=== PATIENT | female | born 1940 | race Caucasian/White ===

== ENCOUNTER → 2017-11-06 | Outpatient (CLI) | payer MEDICARE | END | disposition home or self-care (01) | LOC: OIH 14:44 | PROVIDERS: ATTEND Internal Medicine | DX: M25.562 Pain in left knee (principal); M25.552 Pain in left hip | CPT/HCPCS: 73502; 73560 ==

== ENCOUNTER → 2017-11-26 | Outpatient (CLI) | payer MEDICARE | END | disposition home or self-care (01) | LOC: SHCH 15:38 | PROVIDERS: ATTEND Internal Medicine Cardiovascular Disease | DX: R94.31 Abnormal electrocardiogram [ECG] [EKG] (principal) | CPT/HCPCS: 93306 ==

== ENCOUNTER 2017-12-04 17:00 | Emergency (ER) | payer MEDICARE | END 2017-12-04 18:47 | disposition home or self-care (01) | LOC: EDH 17:00 | DX: F41.8 Other specified anxiety disorders (principal); I10 Essential (primary) hypertension; Z88.0 Allergy status to penicillin; Z88.6 Allergy status to analgesic agent; Z90.710 Acquired absence of both cervix and uterus; Z90.49 Acquired absence of other specified parts of digestive tract; Z79.899 Other long term (current) drug therapy ==

== ENCOUNTER 2017-12-08 22:34 | Emergency (ER) | payer MEDICARE ==
[2017-12-08] MEDS ORDERED: LORAZEPAM 1 MG TABLET ONE (23:36)
== END 2017-12-08 23:52 | disposition home or self-care (01) ==
LOC: EDH 22:34
DX: F41.9 Anxiety disorder, unspecified (principal); F32.9 Major depressive disorder, single episode, unspecified; I10 Essential (primary) hypertension; M48.02 Spinal stenosis, cervical region; Z88.1 Allergy status to other antibiotic agents; Z88.0 Allergy status to penicillin; Z90.710 Acquired absence of both cervix and uterus; Z90.49 Acquired absence of other specified parts of digestive tract

== ENCOUNTER 2017-12-11 15:01 | Emergency (ER) | payer MEDICARE ==
[2017-12-11 16:13] LABS: APPEARANCE,URINE Clear (CLEAR); BILIRUBIN,URINE Negative (NEGATIVE); COLOR,URINE Yellow (YELLOW); GLUCOSE, URINE (UA) Negative (NEGATIVE); KETONES,URINE Negative (NEGATIVE); LEUKOCYTE ESTERASE ,URINE Negative (NEGATIVE); NITRATE,URINE Negative (NEGATIVE); OCCULT BLOOD,URINE Negative (NEGATIVE); PROTEIN,URINE Negative (NEGATIVE); UROBILINOGEN,URINE 0.2 mg/dL (0.2-1.0)
== END 2017-12-11 17:02 | disposition home or self-care (01) ==
LOC: EDH 15:01
DX: M25.552 Pain in left hip (principal); I10 Essential (primary) hypertension; Z88.0 Allergy status to penicillin; Z88.8 Allergy status to other drugs, medicaments and biological substances
CPT/HCPCS: 73521; 81003; 93971

== ENCOUNTER 2017-12-27 11:26 | Emergency (ER) | payer MEDICARE ==
[2017-12-27] MEDS ORDERED: FAMOTIDINE 20MG TAB 20 MG TAB ONE (11:58)
[2017-12-27] MEDS ORDERED: PREDNISONE 20 MG TABLET ONE (11:58)
[2017-12-27] MEDS ORDERED: LIDOCAINE 5% TOPICAL PATCH TP ONE (11:58)
== END 2017-12-27 13:09 | disposition home or self-care (01) ==
LOC: EDH 11:26
DX: T63.441A Toxic effect of venom of bees, accidental (unintentional), initial encounter (principal); I10 Essential (primary) hypertension; F41.9 Anxiety disorder, unspecified; Z90.710 Acquired absence of both cervix and uterus; Z90.49 Acquired absence of other specified parts of digestive tract; Z88.1 Allergy status to other antibiotic agents; Z88.0 Allergy status to penicillin; Z91.048 Other nonmedicinal substance allergy status; Z87.891 Personal history of nicotine dependence; Y92.89 Other specified places as the place of occurrence of the external cause; Y93.89 Activity, other specified; Y99.8 Other external cause status

== ENCOUNTER 2018-01-21 16:40 | Emergency (ER) | payer MEDICARE ==
[2018-01-21 17:53] LABS: BASOPHILS % (AUTO) 0.8 % (0.0-5.0); EOSINOPHILS % (AUTO) 5.6 % (0.0-8.0); HEMATOCRIT 38.4 % (36-48); LYMPHOCYTES % (AUTO) 26.3 % (21.0-51.0); MEAN CORPUSCULAR HEMOGLOBIN 28.6 pg (27.0-33.0); MEAN CORPUSCULAR HGB CONC 33.1 g/dL (32.0-36.0); MEAN CORPUSCULAR VOLUME 86.4 fL (79-99); MONOCYTES % (AUTO) 6.2 % (3.0-13.0); NEUTROPHILS % (AUTO) 61.1 % (40.0-77.0); PLATELET COUNT (AUTO) 349 K/uL (130-400); RED BLOOD CELL COUNT(AUTO) 4.45 MIL/uL (4.00-5.50); RED CELL DISTRIBUTION WIDTH 15.3 % (11.0-15.5)
[2018-01-21 17:54] LABS: APPEARANCE,URINE Clear (CLEAR); BILIRUBIN,URINE Negative (NEGATIVE); COLOR,URINE Yellow (YELLOW); GLUCOSE, URINE (UA) Negative (NEGATIVE); KETONES,URINE Negative (NEGATIVE); LEUKOCYTE ESTERASE ,URINE Negative (NEGATIVE); NITRATE,URINE Negative (NEGATIVE); OCCULT BLOOD,URINE Trace (NEGATIVE); PROTEIN,URINE Negative (NEGATIVE); UROBILINOGEN,URINE 0.2 mg/dL (0.2-1.0)
[2018-01-21] MEDS ORDERED: MORPHINE SULFATE 2 MG/ML 1ML SYG ONE ×2 (18:10→20:11)
[2018-01-21] MEDS ORDERED: ONDANSETRON HCL 4 MG/2 ML VIAL ONE (18:10)
[2018-01-21 18:14] LABS: ALBUMIN 3.8 g/dL (3.5-5.0); BILIRUBIN,TOTAL 0.3 mg/dL (0.2-1.0); CREATININE 0.8 mg/dL (0.5-1.5); POTASSIUM 4.2 mmol/L (3.5-5.1); TOTAL PROTEIN, SERUM 7.6 g/dL (6.0-8.3)
[2018-01-21 18:22] LABS: BACTERIA,URINE Rare /HPF (None Seen); RBC,URINE None Seen /HPF (0-1); WBC,URINE 0-1 /HPF (0-1)
[2018-01-21 18:23] LABS: SQUAMOUS EPITHELIAL CELL,UR None Seen /HPF (0-2)
== END 2018-01-21 21:00 | disposition home or self-care (01) ==
LOC: EDH 16:40
DX: F11.20 Opioid dependence, uncomplicated (principal); I10 Essential (primary) hypertension; F41.9 Anxiety disorder, unspecified; Z72.0 Tobacco use; Z88.0 Allergy status to penicillin; Z88.1 Allergy status to other antibiotic agents; Z91.018 Allergy to other foods
CPT/HCPCS: 36415; 80053; 81001; 85025; 96374; 96375; 96376; 99283; J2405

== ENCOUNTER 2018-01-22 22:52 | Emergency (ER) | payer MEDICARE ==
[2018-01-23] MEDS ORDERED: ACETAMINOPHEN 325 MG TAB ONE (00:28)
== END 2018-01-23 02:00 | disposition home or self-care (01) ==
LOC: EDH 22:52
DX: G44.209 Tension-type headache, unspecified, not intractable (principal); K59.00 Constipation, unspecified; I10 Essential (primary) hypertension; Z88.0 Allergy status to penicillin; Z88.1 Allergy status to other antibiotic agents
CPT/HCPCS: 74018

== ENCOUNTER 2018-03-28 21:22 | Emergency (ER) | payer MEDICARE ==
[~2018-03-28 21:22] MED LIST: BUPR1FIL SL; CETI10TA57 PO; CLON1TAB12 PO; FAMO20TA8 PO; LEVO25TA54 PO; LIDOCAINE 4% TD; LISI-613 PO; SUCR1TAB PO; TEMA30CA PO
[2018-03-28 22:19] LABS: BASOPHILS % (AUTO) 0.7 % (0.0-5.0); EOSINOPHILS % (AUTO) 3.6 % (0.0-8.0); HEMATOCRIT 33.8 % (36-48); LYMPHOCYTES % (AUTO) 36.4 % (21.0-51.0); MEAN CORPUSCULAR HEMOGLOBIN 27.9 pg (27.0-33.0); MEAN CORPUSCULAR HGB CONC 33.3 g/dL (32.0-36.0); NEUTROPHILS % (AUTO) 47.3 % (40.0-77.0); NUCLEATED RED BLOOD CELLS 0.1 % (0.0-0.19); PLATELET COUNT (AUTO) 437 K/uL (130-400); RED BLOOD CELL COUNT(AUTO) 4.03 MIL/uL (4.00-5.50); RED CELL DISTRIBUTION WIDTH 13.8 % (11.0-15.5)
[2018-03-28 22:20] LABS: CREATININE 0.9 mg/dL (0.5-1.5); POTASSIUM 4.1 mmol/L (3.5-5.1)
[2018-03-28] MEDS ORDERED: LORAZEPAM 1 MG TABLET ONE (22:21)
[2018-03-28] MEDS ORDERED: KETOROLAC TROMETHAMINE 30MG/ML ONE (22:21)
[2018-03-28] MEDS ORDERED: LORAZEPAM 2 MG/ML 1 ML VIAL ONE (22:22)
[2018-03-28 22:25] LABS: BILIRUBIN,TOTAL 0.3 mg/dL (0.2-1.0); TOTAL PROTEIN, SERUM 7.4 g/dL (6.0-8.3)
== END 2018-03-28 22:46 | disposition home or self-care (01) ==
LOC: EDH 21:22
DX: F41.9 Anxiety disorder, unspecified (principal); F13.239 Sedative, hypnotic or anxiolytic dependence with withdrawal, unspecified; M25.511 Pain in right shoulder; R68.84 Jaw pain; I10 Essential (primary) hypertension; E78.5 Hyperlipidemia, unspecified; Z90.710 Acquired absence of both cervix and uterus; Z90.49 Acquired absence of other specified parts of digestive tract; Z90.89 Acquired absence of other organs; Z87.891 Personal history of nicotine dependence; Z88.0 Allergy status to penicillin; Z91.018 Allergy to other foods
CPT/HCPCS: 36415; 80053; 84484; 85025; 96374; 96375; 99283; J1885; J2060

== ENCOUNTER → 2018-04-05 | Outpatient (CLI) | payer MEDICARE | END | disposition home or self-care (01) | LOC: OIH 13:06 | PROVIDERS: ATTEND Internal Medicine | DX: M25.512 Pain in left shoulder (principal) | CPT/HCPCS: 73030 ==

== ENCOUNTER 2018-05-01 14:23 | Emergency (ER) | payer MEDICARE ==
[2018-05-01] MEDS ORDERED: DEXAMETHASONE SOD PHOSPHATE 10MG/ML 1ML VIAL ONE (15:14)
[2018-05-01] MEDS ORDERED: ACETAMINOPHEN EXTRA STRENGTH 500 MG TABLET ONE (15:14)
== END 2018-05-01 17:09 | disposition home or self-care (01) ==
LOC: EDH 14:23
DX: M25.512 Pain in left shoulder (principal); G89.29 Other chronic pain; F41.9 Anxiety disorder, unspecified; I10 Essential (primary) hypertension; E78.5 Hyperlipidemia, unspecified; Z88.0 Allergy status to penicillin; Z88.6 Allergy status to analgesic agent; Z90.710 Acquired absence of both cervix and uterus; Z98.890 Other specified postprocedural states; Z91.018 Allergy to other foods
CPT/HCPCS: 93005; 96372; 99283; J1100

== ENCOUNTER 2018-05-05 21:31 | Emergency (ER) | payer MEDICARE | END 2018-05-05 22:41 | disposition home or self-care (01) | LOC: EDH 21:31 | DX: S70.02XA Contusion of left hip, initial encounter (principal); M79.642 Pain in left hand; E78.5 Hyperlipidemia, unspecified; I10 Essential (primary) hypertension; F41.9 Anxiety disorder, unspecified; Z88.0 Allergy status to penicillin; Z88.6 Allergy status to analgesic agent; Z90.710 Acquired absence of both cervix and uterus; Z91.018 Allergy to other foods; W01.0XXA Fall on same level from slipping, tripping and stumbling without subsequent striking against object, initial encounter; Y93.89 Activity, other specified; Y92.89 Other specified places as the place of occurrence of the external cause; Y99.8 Other external cause status | CPT/HCPCS: 99281 ==

== ENCOUNTER 2018-06-18 11:25 | Emergency (ER) | payer MEDICARE ==
[2018-06-18] MEDS ORDERED: DEXAMETHASONE SOD PHOSPHATE 10MG/ML 1ML VIAL ONE (12:09)
[2018-06-18] MEDS ORDERED: FAMOTIDINE/PF 20 MG/2 ML VIAL IV ONE (12:09)
[2018-06-18] MEDS ORDERED: DiphenhydrAMINE HCL 50 MG/ML VIAL ONE (12:09)
[2018-06-18 12:14] LABS: BASOPHILS % (AUTO) 0.5 % (0.0-5.0); EOSINOPHILS % (AUTO) 6.4 % (0.0-8.0); HEMATOCRIT 36.3 % (36-48); LYMPHOCYTES % (AUTO) 25.9 % (21.0-51.0); MEAN CORPUSCULAR HEMOGLOBIN 26.5 pg (27.0-33.0); MEAN CORPUSCULAR HGB CONC 32.8 g/dL (32.0-36.0); MEAN CORPUSCULAR VOLUME 80.7 fL (79-99); MONOCYTES % (AUTO) 8.9 % (3.0-13.0); NEUTROPHILS % (AUTO) 58.3 % (40.0-77.0); PLATELET COUNT (AUTO) 353 K/uL (130-400); RED BLOOD CELL COUNT(AUTO) 4.49 MIL/uL (4.00-5.50); RED CELL DISTRIBUTION WIDTH 16.1 % (11.0-15.5); WHITE BLOOD COUNT (AUTO) 6.6 K/uL (4.8-10.8)
[2018-06-18 12:25] LABS: CREATININE 0.7 mg/dL (0.5-1.5); POTASSIUM 4.2 mmol/L (3.5-5.1)
[2018-06-18 12:30] LABS: ALBUMIN 3.9 g/dL (3.5-5.0); BILIRUBIN,TOTAL 0.4 mg/dL (0.2-1.0); TOTAL PROTEIN, SERUM 7.8 g/dL (6.0-8.3)
== END 2018-06-18 15:31 | disposition home or self-care (01) ==
LOC: EDH 11:25
DX: T78.49XA Other allergy, initial encounter (principal); I10 Essential (primary) hypertension; F41.9 Anxiety disorder, unspecified; E78.5 Hyperlipidemia, unspecified; Z90.710 Acquired absence of both cervix and uterus; Z90.49 Acquired absence of other specified parts of digestive tract; Z98.890 Other specified postprocedural states; Z87.891 Personal history of nicotine dependence; Z88.0 Allergy status to penicillin; Z91.018 Allergy to other foods; Z88.8 Allergy status to other drugs, medicaments and biological substances; X58.XXXA Exposure to other specified factors, initial encounter
CPT/HCPCS: 36415; 80053; 85025; 96374; 96375; 99284; J1100; J1200; J3490

== ENCOUNTER 2018-07-01 11:54 | Observation (INO) | payer MEDICARE ==
[~2018-07-01] VITALS: Ht 152.4 cm; Wt 49.9 kg
[2018-07-01 13:29] LABS: BASOPHILS % (AUTO) 2.6 % (0.0-5.0); EOSINOPHILS % (AUTO) 5.2 % (0.0-8.0); HEMATOCRIT 38.1 % (36-48); LYMPHOCYTES % (AUTO) 19.2 % (21.0-51.0); MEAN CORPUSCULAR HEMOGLOBIN 26.3 pg (27.0-33.0); MEAN CORPUSCULAR HGB CONC 32.5 g/dL (32.0-36.0); MEAN CORPUSCULAR VOLUME 80.8 fL (79-99); MONOCYTES % (AUTO) 8.6 % (3.0-13.0); NEUTROPHILS % (AUTO) 64.4 % (40.0-77.0); NUCLEATED RED BLOOD CELLS 0.1 % (0.0-0.19); PLATELET COUNT (AUTO) 326 K/uL (130-400); RED BLOOD CELL COUNT(AUTO) 4.72 MIL/uL (4.00-5.50); RED CELL DISTRIBUTION WIDTH 15.9 % (11.0-15.5); WHITE BLOOD COUNT (AUTO) 6.8 K/uL (4.8-10.8)
[2018-07-01 13:32] LABS: APPEARANCE,URINE Clear (CLEAR); BILIRUBIN,URINE Negative (NEGATIVE); COLOR,URINE Yellow (YELLOW); GLUCOSE, URINE (UA) Negative (NEGATIVE); KETONES,URINE Negative (NEGATIVE); LEUKOCYTE ESTERASE ,URINE Trace (NEGATIVE); NITRATE,URINE Negative (NEGATIVE); OCCULT BLOOD,URINE Negative (NEGATIVE); PROTEIN,URINE Negative (NEGATIVE)
[2018-07-01 13:36] LABS: CREATININE 0.8 mg/dL (0.5-1.5); POTASSIUM 4.2 mmol/L (3.5-5.1)
[2018-07-01 13:41] LABS: ALBUMIN 3.8 g/dL (3.5-5.0); BILIRUBIN,TOTAL 0.3 mg/dL (0.2-1.0); TOTAL PROTEIN, SERUM 7.2 g/dL (6.0-8.3)
[2018-07-01 13:42] LABS: BACTERIA,URINE Rare /HPF (None Seen); SQUAMOUS EPITHELIAL CELL,UR Rare /HPF (0-2); WBC,URINE 0-1 /HPF (0-1)
[2018-07-01 13:42] LABS: INR 0.93 (0.85-1.15); PARTIAL THROMBOPLASTIN TIME 27.2 SEC (26.3-35.5); PROTHROMBIN TIME 9.8 SEC (9.6-11.6)
[2018-07-01 13:43] LABS: AMORPHOUS SEDIMENT,UR Few /LPF (None Seen); MUCUS,URINE Few LPF (None Seen)
[2018-07-01 14:11] LABS: AMPHET/METH SCREEN,URINE NEGATIVE (NEGATIVE); BARBITURATE SCREEN, URINE NEGATIVE (NEGATIVE); BENZODIAZEPINES SCREEN,URINE POSITIVE (NEGATIVE); CANNABINOID SCREEN,URINE NEGATIVE (NEGATIVE); COCAINE SCREEN,URINE NEGATIVE (NEGATIVE); OPIATE SCREEN,URINE NEGATIVE (NEGATIVE); PHENCYCLIDINE SCREEN,URINE NEGATIVE (NEGATIVE)
[2018-07-01] MEDS ORDERED: BACL10TA PO (18:54)
[2018-07-01] MEDS ORDERED: NAPR-1023 PO (18:54)
[2018-07-01] MEDS ORDERED: NITR100C11 PO (18:54)
--- NOTE | 2018-07-01 19:18 | NUR ---
Dr. Chan aware of pt transfer to floor, okay to feed and start home meds.
[2018-07-01] MEDS ORDERED: ACETAMINOPHEN 325 MG TAB ONE (20:43)
[2018-07-01] MEDS ORDERED: ACETAMINOPHEN 325 MG TAB PO PRN (20:45)
[2018-07-01] MEDS: DEXTROSE 5 %-0.45 % NACL 1,000 ML IV SCH (20:53)
[2018-07-02] VITALS: BP 163/75
[2018-07-02] MEDS: ACETAMINOPHEN 325 MG TAB PO PRN ×3 (02:05→12:07)
[2018-07-02 04:00] VITALS: BP 177/79
[2018-07-02] MEDS ORDERED: LEVOTHYROXINE 25 MCG TABLET PO SCH (06:30)
[2018-07-02 07:00] VITALS: BP 154/91
--- NOTE | 2018-07-02 07:30 | NUR ---
DR. DOLAN IN TO SEE PT.GAVE DISCHARGE ORDERS.CAN FOLLOWUP WITH PA. IN AM.
[2018-07-02] MEDS ORDERED: LISINOPRIL 20 MG TABLET PO SCH (09:00)
[2018-07-02] MEDS ORDERED: FAMOTIDINE 20MG TAB 20 MG TAB PO SCH (09:00)
[2018-07-02] MEDS: DEXTROSE 5 %-0.45 % NACL 1,000 ML IV SCH (09:03)
[2018-07-02 11:23] VITALS: BP 171/85
--- NOTE | 2018-07-02 11:34 | NUR ---
DC PLAN VISITED WITH PATIENT. PATIENT LIVES WITH SPOUSE. INDEPENDENT ABLE TO PERFORM ADL'S. NO PRIOR SERVICES OR DME'S. FEELS SAFE TO RETURN HOME. PATIENT SPOUSE IN THE ROOM WHILE PATIENT ANSWERED QUESTIONS SAID INFO CORRECT AND OKAY TO RETURN HOME. REASON WAITED FOR SPOUSE TO BE PRESENT WAS DUE TO DX OF AMS. Addendum: 07/02/18 at 1136 by NEYMAR NOEL RN CM Amended: Links added.
--- NOTE | 2018-07-02 12:30 | NUR ---
DISCHARGED NOW USING TEACH BACK. ALERT AND ORIENTED AT TIME OF DC. NO NEW RX. GIVEN \. WILL FOLLOW UP WITH DR. DOLAN ON THURSDAY. BOTH PT. AND SPOUSE VERBALIZED UNDERSTANDING OF ALL INST. GIVEN WITH ALL ATTENTION ON USE OF TEMAZEPAM WHICH APPARENTLY IS BEING RX. BY HER PSYCH. DR. STATED BY HER SPOUSE,.REC SHE FOLLOW UP WITH HER PSYCH. ALSO.
== END 2018-07-02 12:30 | disposition home or self-care (01) ==
LOC: EDH 11:54 → EDHIP 15:00 → 3AH 16:04
PROVIDERS: ADMIT Internal Medicine; ATTEND Internal Medicine
DX: R41.82 Altered mental status, unspecified (principal); E78.5 Hyperlipidemia, unspecified; F41.9 Anxiety disorder, unspecified; I10 Essential (primary) hypertension
CPT/HCPCS: 36415; 70450; 71045; 80053; 80305; 81001; 83605; 84443; 84484; 85025; 85610; 85730; 87040 ×2; 87804 ×2; 93005; 96360; 96361 ×2; 99284; G0378 ×21; J7042

== ENCOUNTER 2018-07-11 16:43 | Emergency (ER) | payer MEDICARE ==
[~2018-07-11 16:43] MED LIST changes: +BACL10TA PO; +NAPR-1023 PO; +NITR100C11 PO; -SUCR1TAB PO
[2018-07-11 18:07] LABS: APPEARANCE,URINE Clear (CLEAR); BILIRUBIN,URINE Negative (NEGATIVE); COLOR,URINE Yellow (YELLOW); GLUCOSE, URINE (UA) Negative (NEGATIVE); KETONES,URINE Negative (NEGATIVE); LEUKOCYTE ESTERASE ,URINE Negative (NEGATIVE); NITRATE,URINE Negative (NEGATIVE); OCCULT BLOOD,URINE Trace (NEGATIVE); PH,URINE 6.5 (5.0-8.0); PROTEIN,URINE Negative (NEGATIVE); UROBILINOGEN,URINE 0.2 mg/dL (0.2-1.0)
[2018-07-11 18:20] LABS: BACTERIA,URINE None Seen /HPF (None Seen); WBC,URINE None Seen /HPF (0-1)
[2018-07-11] MEDS ORDERED: TRAMADOL HCL 50 MG TABLET ONE (18:23)
== END 2018-07-11 20:46 | disposition home or self-care (01) ==
LOC: EDH 16:43
DX: G89.29 Other chronic pain (principal); M54.9 Dorsalgia, unspecified; M54.2 Cervicalgia; F11.20 Opioid dependence, uncomplicated; R19.7 Diarrhea, unspecified; F41.9 Anxiety disorder, unspecified; E78.5 Hyperlipidemia, unspecified; I10 Essential (primary) hypertension; Z88.0 Allergy status to penicillin; Z88.1 Allergy status to other antibiotic agents; Z88.8 Allergy status to other drugs, medicaments and biological substances
CPT/HCPCS: 72072; 72100; 72125; 81001

== ENCOUNTER 2018-07-15 14:22 | Emergency (ER) | payer MEDICARE ==
[2018-07-15 15:30] LABS: APPEARANCE,URINE Clear (CLEAR); BILIRUBIN,URINE Negative (NEGATIVE); COLOR,URINE Yellow (YELLOW); GLUCOSE, URINE (UA) Negative (NEGATIVE); KETONES,URINE Negative (NEGATIVE); LEUKOCYTE ESTERASE ,URINE Negative (NEGATIVE); NITRATE,URINE Negative (NEGATIVE); OCCULT BLOOD,URINE Trace (NEGATIVE); PROTEIN,URINE Negative (NEGATIVE); UROBILINOGEN,URINE 0.2 mg/dL (0.2-1.0)
[2018-07-15] MEDS ORDERED: LORAZEPAM 2 MG/ML 1 ML VIAL ONE (15:35)
[2018-07-15] MEDS ORDERED: CHLORDIAZEPOXIDE HCL 25 MG CAP ONE (15:35)
[2018-07-15] MEDS ORDERED: SODIUM CHLORIDE 0.9% 500ML 500 ML IV ONE (15:36)
[2018-07-15 15:41] LABS: BASOPHILS % (AUTO) 0.7 % (0.0-5.0); EOSINOPHILS % (AUTO) 1.9 % (0.0-8.0); HEMATOCRIT 37.2 % (36-48); LYMPHOCYTES % (AUTO) 29.5 % (21.0-51.0); MEAN CORPUSCULAR HEMOGLOBIN 26.6 pg (27.0-33.0); MEAN CORPUSCULAR HGB CONC 32.9 g/dL (32.0-36.0); MEAN CORPUSCULAR VOLUME 80.8 fL (79-99); MONOCYTES % (AUTO) 12.6 % (3.0-13.0); NEUTROPHILS % (AUTO) 55.3 % (40.0-77.0); NUCLEATED RED BLOOD CELLS 0.1 % (0.0-0.19); PLATELET COUNT (AUTO) 436 K/uL (130-400); RED BLOOD CELL COUNT(AUTO) 4.61 MIL/uL (4.00-5.50); RED CELL DISTRIBUTION WIDTH 16.5 % (11.0-15.5); WHITE BLOOD COUNT (AUTO) 6.2 K/uL (4.8-10.8)
[2018-07-15 15:50] LABS: CREATININE 0.6 mg/dL (0.5-1.5)
[2018-07-15 15:55] LABS: BILIRUBIN,TOTAL 0.3 mg/dL (0.2-1.0); TOTAL PROTEIN, SERUM 7.9 g/dL (6.0-8.3)
[2018-07-15 16:20] LABS: BACTERIA,URINE Rare /HPF (None Seen); WBC,URINE 0-1 /HPF (0-1)
[2018-07-15 16:21] LABS: SQUAMOUS EPITHELIAL CELL,UR None Seen /HPF (0-2)
== END 2018-07-15 16:22 | disposition home or self-care (01) ==
LOC: EDH 14:22
DX: F13.20 Sedative, hypnotic or anxiolytic dependence, uncomplicated (principal); F41.9 Anxiety disorder, unspecified; E78.5 Hyperlipidemia, unspecified; I10 Essential (primary) hypertension; Z88.0 Allergy status to penicillin; Z88.1 Allergy status to other antibiotic agents; Z88.8 Allergy status to other drugs, medicaments and biological substances
CPT/HCPCS: 36415; 80053; 81001; 84484; 85025; 93005; 96374; 99285; J2060; J7040

== ENCOUNTER → 2018-08-16 | Outpatient (CLI) | payer MEDICARE | END | disposition home or self-care (01) | LOC: OIH 15:01 | PROVIDERS: ATTEND Internal Medicine | DX: M17.0 Bilateral primary osteoarthritis of knee (principal); M25.861 Other specified joint disorders, right knee | CPT/HCPCS: 73560 ==

== ENCOUNTER 2018-08-31 00:42 | Emergency (ER) | payer MEDICARE ==
[2018-08-31] MEDS ORDERED: SODIUM CHLORIDE 0.9% 500ML 500 ML IV ONE (01:21)
[2018-08-31] MEDS ORDERED: ONDANSETRON HCL 4 MG/2 ML VIAL ONE (01:23)
[2018-08-31 01:54] LABS: BASOPHILS % (AUTO) 0.3 % (0.0-5.0); LYMPHOCYTES % (AUTO) 12.4 % (21.0-51.0); MEAN CORPUSCULAR HEMOGLOBIN 26.3 pg (27.0-33.0); MEAN CORPUSCULAR VOLUME 79.7 fL (79-99); MONOCYTES % (AUTO) 9.3 % (3.0-13.0); NUCLEATED RED BLOOD CELLS 0.1 % (0.0-0.19); PLATELET COUNT (AUTO) 319 K/uL (130-400); RED BLOOD CELL COUNT(AUTO) 4.39 MIL/uL (4.00-5.50); RED CELL DISTRIBUTION WIDTH 16.4 % (11.0-15.5); WHITE BLOOD COUNT (AUTO) 8.7 K/uL (4.8-10.8)
[2018-08-31 02:11] LABS: CREATININE 0.7 mg/dL (0.5-1.5); POTASSIUM 3.7 mmol/L (3.5-5.1)
[2018-08-31 02:12] LABS: INR 0.94 (0.85-1.15); PARTIAL THROMBOPLASTIN TIME 26.1 SEC (26.3-35.5); PROTHROMBIN TIME 9.9 SEC (9.6-11.6)
[2018-08-31 02:16] LABS: ALBUMIN 4.2 g/dL (3.5-5.0); BILIRUBIN,DIRECT 0.1 mg/dL (0.0-0.3); BILIRUBIN,TOTAL 0.2 mg/dL (0.2-1.0); TOTAL PROTEIN, SERUM 7.7 g/dL (6.0-8.3)
== END 2018-08-31 06:18 | disposition home or self-care (01) ==
LOC: EDH 00:42
DX: R42 Dizziness and giddiness (principal); R11.2 Nausea with vomiting, unspecified; I10 Essential (primary) hypertension; E03.9 Hypothyroidism, unspecified; E78.5 Hyperlipidemia, unspecified; Z90.49 Acquired absence of other specified parts of digestive tract; Z98.51 Tubal ligation status; Z90.710 Acquired absence of both cervix and uterus; Z98.890 Other specified postprocedural states; Z88.0 Allergy status to penicillin; Z88.1 Allergy status to other antibiotic agents; Z91.018 Allergy to other foods
CPT/HCPCS: 36415; 70450; 74176; 80048; 80076; 83690; 84484; 85025; 85610; 85730; 93005; 96374; 99285; J2405; J7040

== ENCOUNTER 2018-08-31 14:08 | Emergency (ER) | payer MEDICARE | END 2018-08-31 15:57 | disposition home or self-care (01) | LOC: EDH 14:08 | DX: F41.9 Anxiety disorder, unspecified (principal); F12.10 Cannabis abuse, uncomplicated; G89.29 Other chronic pain; M54.9 Dorsalgia, unspecified; M54.2 Cervicalgia; Z76.0 Encounter for issue of repeat prescription; I10 Essential (primary) hypertension; E78.5 Hyperlipidemia, unspecified; E03.9 Hypothyroidism, unspecified; Z88.0 Allergy status to penicillin; Z88.6 Allergy status to analgesic agent; Z91.018 Allergy to other foods; Z87.891 Personal history of nicotine dependence ==

== ENCOUNTER 2019-02-22 02:10 | Emergency (ER) | payer MEDICARE ==
[~2019-02-22 02:10] MED LIST changes: +NITR-103 PO; -NITR100C11 PO
[2019-02-22 03:19] LABS: APPEARANCE,URINE Clear (CLEAR); BILIRUBIN,URINE Negative (NEGATIVE); COLOR,URINE Yellow (YELLOW); GLUCOSE, URINE (UA) Negative (NEGATIVE); KETONES,URINE Negative (NEGATIVE); LEUKOCYTE ESTERASE ,URINE Negative (NEGATIVE); NITRATE,URINE Negative (NEGATIVE); OCCULT BLOOD,URINE Trace (NEGATIVE); PROTEIN,URINE Negative (NEGATIVE); UROBILINOGEN,URINE 0.2 mg/dL (0.2-1.0)
[2019-02-22 03:29] LABS: BACTERIA,URINE Rare /HPF (None Seen); WBC,URINE 0-1 /HPF (0-1)
[2019-02-22 03:30] LABS: SQUAMOUS EPITHELIAL CELL,UR None Seen /HPF (0-2)
[2019-02-22] MEDS ORDERED: SODIUM CHLORIDE 0.9% 1000ML 2,000 ML IV ONE (04:09)
[2019-02-22 04:33] LABS: BASOPHILS % (AUTO) 0.6 % (0.0-5.0); EOSINOPHILS % (AUTO) 2.9 % (0.0-8.0); HEMATOCRIT 36.7 % (36-48); MEAN CORPUSCULAR HEMOGLOBIN 26.1 pg (27.0-33.0); MEAN CORPUSCULAR HGB CONC 32.2 g/dL (32.0-36.0); MEAN CORPUSCULAR VOLUME 81.2 fL (79-99); MONOCYTES % (AUTO) 10.6 % (3.0-13.0); NEUTROPHILS % (AUTO) 55.5 % (40.0-77.0); PLATELET COUNT (AUTO) 334 K/uL (130-400); RED BLOOD CELL COUNT(AUTO) 4.52 MIL/uL (4.00-5.50); RED CELL DISTRIBUTION WIDTH 15.8 % (11.0-15.5); WHITE BLOOD COUNT (AUTO) 7.9 K/uL (4.8-10.8)
[2019-02-22 04:46] LABS: INR 0.99 (0.85-1.15); PARTIAL THROMBOPLASTIN TIME 25.4 SEC (26.3-35.5); PROTHROMBIN TIME 10.4 SEC (9.6-11.6)
[2019-02-22 04:47] LABS: CREATININE 0.8 mg/dL (0.5-1.5); POTASSIUM 3.9 mmol/L (3.5-5.1)
[2019-02-22 04:52] LABS: ALBUMIN 3.8 g/dL (3.5-5.0); BILIRUBIN,TOTAL 0.5 mg/dL (0.2-1.0); TOTAL PROTEIN, SERUM 7.7 g/dL (6.0-8.3)
[2019-02-22] MEDS ORDERED: IOHEXOL-350 75 ML VIAL IV ONE (05:02)
[2019-02-22] MEDS ORDERED: DiphenhydrAMINE HCL 50 MG/ML VIAL ONE (05:05)
[2019-02-22] MEDS ORDERED: SULFAMETHOX-TMP DS 800/160 TAB ONE (07:37)
== END 2019-02-22 08:17 | disposition home or self-care (01) ==
LOC: EDH 02:10
DX: N39.0 Urinary tract infection, site not specified (principal); M54.5 Low back pain; R19.7 Diarrhea, unspecified; Z88.0 Allergy status to penicillin; Z88.1 Allergy status to other antibiotic agents; Z91.018 Allergy to other foods; F41.9 Anxiety disorder, unspecified; I10 Essential (primary) hypertension; E78.5 Hyperlipidemia, unspecified; Z90.49 Acquired absence of other specified parts of digestive tract; Z90.710 Acquired absence of both cervix and uterus; Z87.891 Personal history of nicotine dependence; Z98.890 Other specified postprocedural states
CPT/HCPCS: 36415; 74177; 80053; 81001; 83605; 83690; 85025; 85610; 85730; 87040 ×2; 96361; 96374; 99285; J1200; J7030; Q9967

== ENCOUNTER 2019-05-20 13:55 | Emergency (ER) | payer MEDICARE ==
[~2019-05-20 13:55] MED LIST changes: +ACET-2743 PO; -BACL10TA PO; -CETI10TA57 PO; -NAPR-1023 PO; -NITR-103 PO; -TEMA30CA PO
[2019-05-20 14:22] LABS: BASOPHILS % (AUTO) 0.5 % (0.0-5.0); EOSINOPHILS % (AUTO) 5.5 % (0.0-8.0); HEMATOCRIT 34.9 % (36-48); LYMPHOCYTES % (AUTO) 45.6 % (21.0-51.0); MEAN CORPUSCULAR HEMOGLOBIN 26.5 pg (27.0-33.0); MEAN CORPUSCULAR HGB CONC 32.4 g/dL (32.0-36.0); MEAN CORPUSCULAR VOLUME 81.7 fL (79-99); MONOCYTES % (AUTO) 12.6 % (3.0-13.0); NEUTROPHILS % (AUTO) 35.6 % (40.0-77.0); PLATELET COUNT (AUTO) 284 K/uL (130-400); RED BLOOD CELL COUNT(AUTO) 4.27 MIL/uL (4.00-5.50); RED CELL DISTRIBUTION WIDTH 15.1 % (11.0-15.5); WHITE BLOOD COUNT (AUTO) 4.2 K/uL (4.8-10.8)
[2019-05-20] MEDS ORDERED: LEVOFLOXACIN 750 MG/D5W 150 ML 150 ML ONE (14:22)
[2019-05-20] MEDS ORDERED: METHYLPREDNISOLONE SOD SUCC 125MG/2ML VIAL ONE (14:22)
[2019-05-20] MEDS ORDERED: LORAZEPAM 2 MG/ML 1 ML VIAL ONE (14:23)
[2019-05-20 14:37] LABS: CREATININE 0.9 mg/dL (0.5-1.5); POTASSIUM 3.5 mmol/L (3.5-5.1)
[2019-05-20 14:42] LABS: ALBUMIN 3.4 g/dL (3.5-5.0); BILIRUBIN,DIRECT 0.1 mg/dL (0.0-0.3); BILIRUBIN,TOTAL 0.4 mg/dL (0.2-1.0); TOTAL PROTEIN, SERUM 7.6 g/dL (6.0-8.3)
== END 2019-05-20 16:37 | disposition home or self-care (01) ==
LOC: EDH 13:55
DX: J20.9 Acute bronchitis, unspecified (principal); E78.5 Hyperlipidemia, unspecified; I10 Essential (primary) hypertension; E03.9 Hypothyroidism, unspecified; F41.9 Anxiety disorder, unspecified; Z88.0 Allergy status to penicillin; Z88.6 Allergy status to analgesic agent; Z90.710 Acquired absence of both cervix and uterus
CPT/HCPCS: 36415; 71045; 80048; 80076; 82550; 83605; 84484; 85025; 87040 ×2; 87804 ×2; 87807; 93005; 96365; 96366; 96375; 99285; J1956; J2060; J2930

== ENCOUNTER 2019-05-24 12:03 | Emergency (ER) | payer MEDICARE ==
[2019-05-24] MEDS ORDERED: LORAZEPAM 2 MG/ML 1 ML VIAL ONE (12:45)
== END 2019-05-24 14:46 | disposition home or self-care (01) ==
LOC: EDH 12:03
DX: F19.230 Other psychoactive substance dependence with withdrawal, uncomplicated (principal); F11.20 Opioid dependence, uncomplicated; F41.9 Anxiety disorder, unspecified; E78.5 Hyperlipidemia, unspecified; I10 Essential (primary) hypertension; Z90.49 Acquired absence of other specified parts of digestive tract; Z90.710 Acquired absence of both cervix and uterus; Z88.0 Allergy status to penicillin; Z88.1 Allergy status to other antibiotic agents; Z91.018 Allergy to other foods; E03.9 Hypothyroidism, unspecified
CPT/HCPCS: 96374; 99283; J2060

== ENCOUNTER 2019-08-01 14:58 | Emergency (ER) | payer MEDICARE ==
[2019-08-01] MEDS ORDERED: SODIUM CHLORIDE 0.9% 500ML 500 ML IV ONE (14:59)
[2019-08-01] MEDS ORDERED: ONDANSETRON HCL 4 MG/2 ML VIAL ONE (15:47)
[2019-08-01] MEDS ORDERED: MORPHINE SULFATE 4 MG/1ML SYG ONE (15:48)
[2019-08-01 16:14] LABS: BASOPHILS % (AUTO) 0.2 % (0.0-5.0); EOSINOPHILS % (AUTO) 2.1 % (0.0-8.0); HEMATOCRIT 41.8 % (36-48); LYMPHOCYTES % (AUTO) 7.9 % (21.0-51.0); MEAN CORPUSCULAR HEMOGLOBIN 26.2 pg (27.0-33.0); MEAN CORPUSCULAR HGB CONC 30.9 g/dL (32.0-36.0); MEAN CORPUSCULAR VOLUME 84.8 fL (79-99); MONOCYTES % (AUTO) 8.6 % (3.0-13.0); PLATELET COUNT (AUTO) 334 K/uL (130-400); RED BLOOD CELL COUNT(AUTO) 4.93 MIL/uL (4.00-5.50); RED CELL DISTRIBUTION WIDTH 14.5 % (11.0-15.5); WHITE BLOOD COUNT (AUTO) 12.6 K/uL (4.8-10.8)
[2019-08-01 16:24] LABS: CREATININE 0.8 mg/dL (0.5-1.5); POTASSIUM 3.7 mmol/L (3.5-5.1)
[2019-08-01 16:28] LABS: ALBUMIN 3.5 g/dL (3.5-5.0); BILIRUBIN,TOTAL 0.2 mg/dL (0.2-1.0); TOTAL PROTEIN, SERUM 7.5 g/dL (6.0-8.3)
== END 2019-08-01 17:31 | disposition home or self-care (01) ==
LOC: EDH 14:58
DX: A09 Infectious gastroenteritis and colitis, unspecified (principal); I10 Essential (primary) hypertension; E78.5 Hyperlipidemia, unspecified; F41.9 Anxiety disorder, unspecified; E03.9 Hypothyroidism, unspecified; Z88.0 Allergy status to penicillin; Z88.1 Allergy status to other antibiotic agents; Z88.8 Allergy status to other drugs, medicaments and biological substances; Z88.6 Allergy status to analgesic agent; Z90.710 Acquired absence of both cervix and uterus; Z90.49 Acquired absence of other specified parts of digestive tract
CPT/HCPCS: 36415; 74176; 80053; 83690; 84484; 85025; 93005; 96374; 96375; 99285; J2270; J2405; J7040

== ENCOUNTER 2019-10-07 08:35 | Emergency (ER) | payer MEDICARE ==
[2019-10-07] MEDS ORDERED: SODIUM CHLORIDE 0.9% 1000ML 1,000 ML IV ONE (09:29)
[2019-10-07 09:38] LABS: BASOPHILS % (AUTO) 0.4 % (0.0-5.0); EOSINOPHILS % (AUTO) 2.8 % (0.0-8.0); HEMATOCRIT 36.4 % (36-48); LYMPHOCYTES % (AUTO) 22.2 % (21.0-51.0); MEAN CORPUSCULAR HEMOGLOBIN 26.1 pg (27.0-33.0); MEAN CORPUSCULAR HGB CONC 32.1 g/dL (32.0-36.0); MEAN CORPUSCULAR VOLUME 81.3 fL (79-99); MONOCYTES % (AUTO) 7.6 % (3.0-13.0); NEUTROPHILS % (AUTO) 66.7 % (40.0-77.0); PLATELET COUNT (AUTO) 324 K/uL (130-400); RED BLOOD CELL COUNT(AUTO) 4.48 MIL/uL (4.00-5.50); RED CELL DISTRIBUTION WIDTH 15.8 % (11.0-15.5); WHITE BLOOD COUNT (AUTO) 7.2 K/uL (4.8-10.8)
[2019-10-07 09:55] LABS: CREATININE 0.8 mg/dL (0.5-1.5); POTASSIUM 3.7 mmol/L (3.5-5.1)
[2019-10-07 09:59] LABS: ALBUMIN 3.4 g/dL (3.5-5.0); BILIRUBIN,TOTAL 0.4 mg/dL (0.2-1.0); TOTAL PROTEIN, SERUM 7.3 g/dL (6.0-8.3)
[2019-10-07 10:01] LABS: INR 0.94 (0.85-1.15); PARTIAL THROMBOPLASTIN TIME 28.3 SEC (26.3-35.5); PROTHROMBIN TIME 10.2 SEC (9.6-11.6)
[2019-10-07 10:15] LABS: B-TYPE NATRIURETIC PEPTIDE 50 pg/mL (0-100)
[2019-10-07 10:44] LABS: APPEARANCE,URINE Clear (CLEAR); BILIRUBIN,URINE Negative (NEGATIVE); COLOR,URINE Yellow (YELLOW); GLUCOSE, URINE (UA) Negative (NEGATIVE); KETONES,URINE Negative (NEGATIVE); LEUKOCYTE ESTERASE ,URINE Negative (NEGATIVE); NITRATE,URINE Negative (NEGATIVE); OCCULT BLOOD,URINE Trace (NEGATIVE); PH,URINE 5.5 (5.0-8.0); PROTEIN,URINE Negative (NEGATIVE); UROBILINOGEN,URINE 0.2 mg/dL (0.2-1.0)
[2019-10-07 11:30] LABS: BACTERIA,URINE Rare /HPF (None Seen); RBC,URINE 0-1 /HPF (0-1); SQUAMOUS EPITHELIAL CELL,UR 0-2 /HPF (0-2); WBC,URINE 0-1 /HPF (0-1)
== END 2019-10-07 11:56 | disposition home or self-care (01) ==
LOC: EDH 08:35
DX: K52.9 Noninfective gastroenteritis and colitis, unspecified (principal); F41.9 Anxiety disorder, unspecified; E78.5 Hyperlipidemia, unspecified; I10 Essential (primary) hypertension; E03.9 Hypothyroidism, unspecified; Z90.49 Acquired absence of other specified parts of digestive tract; Z90.710 Acquired absence of both cervix and uterus; Z87.891 Personal history of nicotine dependence; Z88.0 Allergy status to penicillin; Z88.1 Allergy status to other antibiotic agents; Z91.018 Allergy to other foods
CPT/HCPCS: 36415; 74176; 80053; 81001; 82150; 83605; 83690; 83880; 84484; 85025; 85610; 85730; 93005; 96361; 96374; 99285; J7030

== ENCOUNTER 2019-10-15 06:15 | Emergency (ER) | payer MEDICARE ==
[2019-10-15] MEDS ORDERED: PANTOPRAZOLE 40 MG/VIAL ONE (06:39)
[2019-10-15] MEDS ORDERED: FAMOTIDINE/PF 20 MG/2 ML VIAL IV ONE (06:39)
[2019-10-15] MEDS ORDERED: ONDANSETRON HCL 4 MG/2 ML VIAL ONE (06:39)
[2019-10-15] MEDS ORDERED: DiphenhydrAMINE HCL 50 MG/ML VIAL ONE ×2 (07:02→07:05)
[2019-10-15] MEDS ORDERED: IOHEXOL-350 75 ML VIAL IV ONE (07:10)
[2019-10-15] MEDS ORDERED: HALOPERIDOL LACTATE 5 MG/ML VIAL ONE (08:22)
== END 2019-10-15 10:40 | disposition home or self-care (01) ==
LOC: EDH 06:15
DX: R10.12 Left upper quadrant pain (principal); R10.32 Left lower quadrant pain; G89.29 Other chronic pain; R10.9 Unspecified abdominal pain; F41.9 Anxiety disorder, unspecified; E78.5 Hyperlipidemia, unspecified; I10 Essential (primary) hypertension; Z90.49 Acquired absence of other specified parts of digestive tract; Z90.710 Acquired absence of both cervix and uterus; Z88.0 Allergy status to penicillin; Z88.1 Allergy status to other antibiotic agents; Z91.018 Allergy to other foods
CPT/HCPCS: 36415; 74176; 80053; 80305; 81001; 83605; 83690; 84484; 85025; 85610; 85730; 93005; 96361; 96374; 96375; 99285; C9113; J1200 ×2; J1630; J2405; J3490; Q9967

== ENCOUNTER 2020-04-02 12:50 | Emergency (ER) | payer MEDICARE, OTHER ==
[~2020-04-02 12:50] MED LIST changes: -LISI-613 PO; +LISI20TA24 PO
[2020-04-02] MEDS ORDERED: ASPIRIN 325 MG TABLET ONE (13:08)
[2020-04-02] MEDS ORDERED: ACETAMINOPHEN EXTRA STRENGTH 500 MG TABLET ONE (13:17)
[2020-04-02] MEDS ORDERED: LORAZEPAM 2 MG/ML 1 ML VIAL ONE (13:17)
[2020-04-02 13:18] LABS: BASOPHILS % (AUTO) 0.8 % (0.0-5.0); EOSINOPHILS % (AUTO) 6.5 % (0.0-8.0); HEMATOCRIT 37.3 % (36-48); LYMPHOCYTES % (AUTO) 40.1 % (21.0-51.0); MEAN CORPUSCULAR HEMOGLOBIN 27.3 pg (27.0-33.0); MEAN CORPUSCULAR VOLUME 82.7 fL (79-99); MONOCYTES % (AUTO) 12.5 % (3.0-13.0); NEUTROPHILS % (AUTO) 39.9 % (40.0-77.0); PLATELET COUNT (AUTO) 349 K/uL (130-400); RED BLOOD CELL COUNT(AUTO) 4.51 MIL/uL (4.00-5.50); RED CELL DISTRIBUTION WIDTH 14.3 % (11.0-15.5); WHITE BLOOD COUNT (AUTO) 4.8 K/uL (4.8-10.8)
[2020-04-02 13:33] LABS: INR 1.01 (0.85-1.15)
[2020-04-02 13:34] LABS: PARTIAL THROMBOPLASTIN TIME 26.6 SEC (26.3-35.5)
[2020-04-02 13:36] LABS: CREATININE 0.9 mg/dL (0.5-1.5); POTASSIUM 3.9 mmol/L (3.5-5.1)
[2020-04-02 13:41] LABS: ALBUMIN 3.8 g/dL (3.5-5.0); BILIRUBIN,TOTAL 0.4 mg/dL (0.2-1.0); TOTAL PROTEIN, SERUM 8.2 g/dL (6.0-8.3)
[2020-04-02] MEDS ORDERED: IOHEXOL 350 MG/ML 100ML INFUS..BTL IV ONE (16:30)
== END 2020-04-02 18:55 | disposition home or self-care (01) ==
LOC: EDH 12:50
DX: R07.89 Other chest pain (principal); F41.9 Anxiety disorder, unspecified; E78.5 Hyperlipidemia, unspecified; I10 Essential (primary) hypertension; E03.9 Hypothyroidism, unspecified; Z90.49 Acquired absence of other specified parts of digestive tract; Z90.710 Acquired absence of both cervix and uterus; Z88.1 Allergy status to other antibiotic agents; Z88.0 Allergy status to penicillin; Z91.018 Allergy to other foods
CPT/HCPCS: 36415; 71045; 71275; 74174; 80053; 82550; 84484; 85025; 85610; 85730; 93005; 96374; 99285; J2060; Q9967

== ENCOUNTER 2020-05-18 15:33 | Observation (INO) | payer MEDICARE, OTHER ==
[2020-05-18 16:13] LABS: BASOPHILS % (AUTO) 0.5 % (0.0-5.0); EOSINOPHILS % (AUTO) 3.7 % (0.0-8.0); HEMATOCRIT 41.6 % (36-48); LYMPHOCYTES % (AUTO) 29.8 % (21.0-51.0); MEAN CORPUSCULAR HEMOGLOBIN 27.1 pg (27.0-33.0); MEAN CORPUSCULAR HGB CONC 32.5 g/dL (32.0-36.0); MEAN CORPUSCULAR VOLUME 83.4 fL (79-99); MONOCYTES % (AUTO) 6.8 % (3.0-13.0); NEUTROPHILS % (AUTO) 58.8 % (40.0-77.0); PLATELET COUNT (AUTO) 380 K/uL (130-400); RED BLOOD CELL COUNT(AUTO) 4.99 MIL/uL (4.00-5.50); RED CELL DISTRIBUTION WIDTH 14.7 % (11.0-15.5); WHITE BLOOD COUNT (AUTO) 8.4 K/uL (4.8-10.8)
[2020-05-18 16:29] LABS: INR 1.08 (0.85-1.15); PROTHROMBIN TIME 11.7 SEC (9.6-11.6)
[2020-05-18 16:30] LABS: PARTIAL THROMBOPLASTIN TIME 27.5 SEC (26.3-35.5)
[2020-05-18 16:33] LABS: CREATININE 1.3 mg/dL (0.5-1.5); POTASSIUM 4.3 mmol/L (3.5-5.1)
[2020-05-18 16:38] LABS: ALBUMIN 4.1 g/dL (3.5-5.0); BILIRUBIN,TOTAL 0.7 mg/dL (0.2-1.0); TOTAL PROTEIN, SERUM 8.7 g/dL (6.0-8.3)
[2020-05-18] MEDS ORDERED: ASPIRIN 325 MG TABLET ONE (16:59)
[2020-05-18] MEDS ORDERED: SODIUM CHLORIDE 0.9% 1000ML 1,000 ML IV ONE (17:16)
[2020-05-18] MEDS ORDERED: ONDANSETRON HCL 4 MG/2 ML VIAL ONE (17:17)
[2020-05-18] MEDS ORDERED: NITROGLYCERIN 0.4 MG SL TAB SL ONE (17:17)
[2020-05-18 17:29] LABS: APPEARANCE,URINE Clear (CLEAR); BILIRUBIN,URINE Negative (NEGATIVE); COLOR,URINE Yellow (YELLOW); GLUCOSE, URINE (UA) Negative (NEGATIVE); KETONES,URINE Negative (NEGATIVE); LEUKOCYTE ESTERASE ,URINE Negative (NEGATIVE); NITRATE,URINE Negative (NEGATIVE); OCCULT BLOOD,URINE Negative (NEGATIVE); PROTEIN,URINE Negative (NEGATIVE); UROBILINOGEN,URINE 0.2 mg/dL (0.2-1.0)
[2020-05-18] MEDS ORDERED: IOHEXOL-350 75 ML VIAL IV ONE (17:31)
[2020-05-18] MEDS ORDERED: ONDANSETRON HCL 4 MG/2 ML VIAL IV PRN (20:15)
[2020-05-18] MEDS ORDERED: LOPERAMIDE HCL 2 MG CAP PO PRN (20:15)
[2020-05-18] MEDS ORDERED: SODIUM CHLORIDE 0.9% 1000ML 1,000 ML IV SCH (20:15)
[2020-05-18] MEDS ORDERED: ACETAMINOPHEN 325 MG TAB PO PRN ×2 (20:15)
[2020-05-18 20:33] LABS: ABG BASE EXCESS -4.2 mmol/L (-2.0-3.0); ABG HCO3 19.8 mmol/L (21.0-28.0); ABG OXYGEN SATURATION 96.4 % (95.0-99.0); ABG PCO2 34 mmHg (32-45)
[2020-05-18] MEDS ORDERED: LOPERAMIDE HCL 2 MG CAP PO ONE (20:55)
[2020-05-18] MEDS ORDERED: LEVOFLOXACIN 500 MG/D5W 100 ML 100 ML ONE (20:56)
[2020-05-18] MEDS ORDERED: FAMOTIDINE/PF 20 MG/2 ML VIAL IV ONE (20:56)
[2020-05-18] MEDS ORDERED: FAMOTIDINE/PF 20 MG/2 ML VIAL IV SCH (21:00)
[2020-05-18] MEDS ORDERED: LOPERAMIDE HCL 2 MG CAP PO SCH (21:30)
[2020-05-19] MEDS ORDERED: LEVOFLOXACIN 500 MG/D5W 100 ML 100 ML IV SCH (18:00)
== END 2020-05-18 22:35 | disposition home or self-care (01) ==
LOC: EDH 15:33 → EDHIP 20:02 → 3BH 21:35
PROVIDERS: ADMIT Internal Medicine; ATTEND Internal Medicine
DX: R19.7 Diarrhea, unspecified (principal); Z20.822 Contact with and (suspected) exposure to COVID-19; N17.9 Acute kidney failure, unspecified; E86.0 Dehydration; E86.1 Hypovolemia; E87.2 Acidosis; I10 Essential (primary) hypertension; F41.9 Anxiety disorder, unspecified; E78.5 Hyperlipidemia, unspecified; E03.9 Hypothyroidism, unspecified; Z87.891 Personal history of nicotine dependence; Z90.49 Acquired absence of other specified parts of digestive tract; Z90.710 Acquired absence of both cervix and uterus; Z79.82 Long term (current) use of aspirin; Z79.899 Other long term (current) drug therapy; Z88.0 Allergy status to penicillin; Z88.1 Allergy status to other antibiotic agents; Z91.018 Allergy to other foods
CPT/HCPCS: 36415; 36600; 71045; 74177; 80053; 81003; 82550; 82803; 83605 ×2; 84484 ×2; 85025; 85610; 85730; 87040; 87426; 93005; 99285; G0378 ×2; J1956; J2405; J3490; J7030; Q9967; U0003

== ENCOUNTER → 2020-05-21 | Outpatient (CLI) | payer MEDICARE | END | disposition home or self-care (01) | LOC: OIH 15:41 | PROVIDERS: ATTEND Internal Medicine | DX: M48.061 Spinal stenosis, lumbar region without neurogenic claudication (principal); M85.88 Other specified disorders of bone density and structure, other site | CPT/HCPCS: 72040; 72100 ==

== ENCOUNTER 2020-05-23 20:20 | Emergency (ER) | payer MEDICARE ==
[2020-05-23] MEDS ORDERED: LIDOCAINE HCL 2% VISCOUS 15 ML UDCUP ONE (21:06)
[2020-05-23] MEDS ORDERED: FAMOTIDINE/PF 20 MG/2 ML VIAL IV ONE (21:07)
[2020-05-23] MEDS ORDERED: MAG HYDROX/AL HYDROX/SIMETH ES 30 ML SUSP UDCUP ONE (21:07)
[2020-05-23] MEDS ORDERED: FENTANYL CITRATE PF 50 MCG/1 ML 2ML VIAL ONE (21:30)
[2020-05-23 21:31] LABS: BASOPHILS % (AUTO) 0.5 % (0.0-5.0); EOSINOPHILS % (AUTO) 2.4 % (0.0-8.0); HEMATOCRIT 34.6 % (36-48); LYMPHOCYTES % (AUTO) 30.2 % (21.0-51.0); MEAN CORPUSCULAR HEMOGLOBIN 27.7 pg (27.0-33.0); MEAN CORPUSCULAR HGB CONC 34.7 g/dL (32.0-36.0); MEAN CORPUSCULAR VOLUME 79.9 fL (79-99); MONOCYTES % (AUTO) 11.5 % (3.0-13.0); NEUTROPHILS % (AUTO) 55.1 % (40.0-77.0); PLATELET COUNT (AUTO) 328 K/uL (130-400); RED BLOOD CELL COUNT(AUTO) 4.33 MIL/uL (4.00-5.50); RED CELL DISTRIBUTION WIDTH 14.5 % (11.0-15.5); WHITE BLOOD COUNT (AUTO) 6.4 K/uL (4.8-10.8)
[2020-05-23 21:32] LABS: APPEARANCE,URINE Clear (CLEAR); BILIRUBIN,URINE Negative (NEGATIVE); COLOR,URINE Yellow (YELLOW); GLUCOSE, URINE (UA) Negative (NEGATIVE); KETONES,URINE Negative (NEGATIVE); LEUKOCYTE ESTERASE ,URINE Negative (NEGATIVE); NITRATE,URINE Negative (NEGATIVE); OCCULT BLOOD,URINE Trace (NEGATIVE); PH,URINE 6.5 (5.0-8.0); PROTEIN,URINE Negative (NEGATIVE)
[2020-05-23 21:41] LABS: BACTERIA,URINE None Seen /HPF (None Seen); SQUAMOUS EPITHELIAL CELL,UR 0-2 /HPF (0-2); WBC,URINE 0-1 /HPF (0-1)
[2020-05-23 21:45] LABS: POTASSIUM 3.5 mmol/L (3.5-5.1)
[2020-05-23 21:47] LABS: INR 1.15 (0.85-1.15); PROTHROMBIN TIME 12.4 SEC (9.6-11.6)
[2020-05-23 21:48] LABS: PARTIAL THROMBOPLASTIN TIME 28.8 SEC (26.3-35.5)
[2020-05-23 21:57] LABS: ALBUMIN 3.8 g/dL (3.5-5.0); BILIRUBIN,TOTAL 0.5 mg/dL (0.2-1.0); TOTAL PROTEIN, SERUM 7.4 g/dL (6.0-8.3)
[2020-05-23 21:58] LABS: B-TYPE NATRIURETIC PEPTIDE 200 pg/mL (0-100)
[2020-05-23] MEDS ORDERED: LORAZEPAM 2 MG/ML 1 ML VIAL ONE (22:46)
== END 2020-05-24 01:02 | disposition home or self-care (01) ==
LOC: EDH 20:20
DX: R10.13 Epigastric pain (principal); I10 Essential (primary) hypertension; E78.5 Hyperlipidemia, unspecified; F41.9 Anxiety disorder, unspecified; Z88.1 Allergy status to other antibiotic agents; Z88.0 Allergy status to penicillin; Z88.6 Allergy status to analgesic agent; Z91.018 Allergy to other foods
CPT/HCPCS: 36415; 71045; 74176; 76705; 80053; 81001; 82550; 83690; 83880; 84484; 85025; 85610; 85730; 93005; 96361; 96374; 96375; 99285; J2060; J3010; J3490

== ENCOUNTER 2020-05-27 15:09 | Emergency (ER) | payer MEDICARE ==
[2020-05-27] MEDS ORDERED: MAG HYDROX/AL HYDROX/SIMETH ES 30 ML SUSP UDCUP ONE (15:28)
[2020-05-27] MEDS ORDERED: DICYCLOMINE HCL 10 MG/ML 2ML AMP IM ONE (15:28)
[2020-05-27] MEDS ORDERED: LIDOCAINE HCL 2% VISCOUS 15 ML UDCUP ONE (15:28)
[2020-05-27] MEDS ORDERED: LORAZEPAM 2 MG/ML 1 ML VIAL ONE (15:29)
[2020-05-27 15:43] LABS: BASOPHILS % (AUTO) 0.5 % (0.0-5.0); EOSINOPHILS % (AUTO) 3.8 % (0.0-8.0); HEMATOCRIT 39.3 % (36-48); LYMPHOCYTES % (AUTO) 29.5 % (21.0-51.0); MEAN CORPUSCULAR HEMOGLOBIN 26.9 pg (27.0-33.0); MEAN CORPUSCULAR HGB CONC 32.8 g/dL (32.0-36.0); MEAN CORPUSCULAR VOLUME 81.9 fL (79-99); NEUTROPHILS % (AUTO) 56.1 % (40.0-77.0); PLATELET COUNT (AUTO) 409 K/uL (130-400); RED CELL DISTRIBUTION WIDTH 15.2 % (11.0-15.5); WHITE BLOOD COUNT (AUTO) 7.7 K/uL (4.8-10.8)
[2020-05-27 15:44] LABS: APPEARANCE,URINE Clear (CLEAR); BILIRUBIN,URINE Negative (NEGATIVE); COLOR,URINE Yellow (YELLOW); GLUCOSE, URINE (UA) Negative (NEGATIVE); KETONES,URINE Negative (NEGATIVE); LEUKOCYTE ESTERASE ,URINE Trace (NEGATIVE); NITRATE,URINE Negative (NEGATIVE); OCCULT BLOOD,URINE Trace (NEGATIVE); PH,URINE 5.5 (5.0-8.0); PROTEIN,URINE Trace mg/dL (NEGATIVE)
[2020-05-27 15:54] LABS: POTASSIUM 3.7 mmol/L (3.5-5.1)
[2020-05-27 15:58] LABS: BACTERIA,URINE None Seen /HPF (None Seen); MUCUS,URINE Rare LPF (None Seen); RBC,URINE 0-1 /HPF (0-1); SQUAMOUS EPITHELIAL CELL,UR Rare /HPF (0-2); WBC,URINE 0-1 /HPF (0-1)
[2020-05-27 15:59] LABS: BILIRUBIN,TOTAL 0.4 mg/dL (0.2-1.0); TOTAL PROTEIN, SERUM 8.1 g/dL (6.0-8.3)
== END 2020-05-27 17:19 | disposition home or self-care (01) ==
LOC: EDH 15:09
DX: K52.9 Noninfective gastroenteritis and colitis, unspecified (principal); I10 Essential (primary) hypertension; E78.5 Hyperlipidemia, unspecified; F41.9 Anxiety disorder, unspecified; E03.9 Hypothyroidism, unspecified; Z88.1 Allergy status to other antibiotic agents; Z88.0 Allergy status to penicillin; Z91.018 Allergy to other foods; Z88.6 Allergy status to analgesic agent; Z90.710 Acquired absence of both cervix and uterus; Z98.890 Other specified postprocedural states
CPT/HCPCS: 36415; 80053; 81001; 84484; 85025; 96372 ×2; 99284; J0500; J2060

== ENCOUNTER 2020-08-29 14:08 | Emergency (ER) | payer MEDICARE ==
[~2020-08-29] VITALS: Ht 152.4 cm; Wt 52.6 kg
[2020-08-29 14:12] VITALS: BP 155/79
[2020-08-29 14:21] VITALS: BP 120/75
== END 2020-08-29 16:03 | disposition left against medical advice (07) ==
LOC: EDH 14:08
DX: R10.9 Unspecified abdominal pain (principal); Z53.21 Procedure and treatment not carried out due to patient leaving prior to being seen by health care provider

== ENCOUNTER 2020-11-16 18:24 | Observation (INO) | payer MEDICARE, OTHER ==
[~2020-11-16] VITALS: Ht 152.4 cm; Wt 50.8 kg
[2020-11-16 18:35] VITALS: BP 154/76
[2020-11-16 19:19] LABS: APPEARANCE,URINE Clear (CLEAR); BILIRUBIN,URINE Negative (NEGATIVE); COLOR,URINE Yellow (YELLOW); GLUCOSE, URINE (UA) Negative (NEGATIVE); KETONES,URINE 15 mg/dL (NEGATIVE); LEUKOCYTE ESTERASE ,URINE Negative (NEGATIVE); NITRATE,URINE Negative (NEGATIVE); OCCULT BLOOD,URINE Small (NEGATIVE); PH,URINE 6.5 (5.0-8.0); PROTEIN,URINE POS 2+ mg/dL (NEGATIVE)
[2020-11-16 19:22] LABS: CREATININE 0.7 mg/dL (0.5-1.5); POTASSIUM 3.2 mmol/L (3.5-5.1)
[2020-11-16 19:26] LABS: ALBUMIN 3.5 g/dL (3.5-5.0); BILIRUBIN,TOTAL 0.3 mg/dL (0.2-1.0); TOTAL PROTEIN, SERUM 7.9 g/dL (6.0-8.3)
[2020-11-16 19:32] LABS: BASOPHILS % (AUTO) 0.3 % (0.0-5.0); EOSINOPHILS % (AUTO) 0.6 % (0.0-8.0); HEMATOCRIT 35.7 % (36-48); LYMPHOCYTES % (AUTO) 29.2 % (21.0-51.0); MEAN CORPUSCULAR HEMOGLOBIN 26.6 pg (27.0-33.0); MEAN CORPUSCULAR HGB CONC 33.3 g/dL (32.0-36.0); MEAN CORPUSCULAR VOLUME 79.7 fL (79-99); MONOCYTES % (AUTO) 14.5 % (3.0-13.0); NEUTROPHILS % (AUTO) 55.1 % (40.0-77.0); PLATELET COUNT (AUTO) 342 K/uL (130-400); RED BLOOD CELL COUNT(AUTO) 4.48 MIL/uL (4.00-5.50); RED CELL DISTRIBUTION WIDTH 15.9 % (11.0-15.5); WHITE BLOOD COUNT (AUTO) 3.6 K/uL (4.8-10.8)
[2020-11-16 20:00] LABS: BACTERIA,URINE Rare /HPF (None Seen); RBC,URINE None Seen /HPF (0-1); SQUAMOUS EPITHELIAL CELL,UR None Seen /HPF (0-2); WBC,URINE 0-1 /HPF (0-1)
[2020-11-16] MEDS ORDERED: FAMOTIDINE 20MG VIAL IV ONE (20:00)
[2020-11-16] MEDS ORDERED: LORAZEPAM 2 MG/ML 1 ML VIAL IVP ONE (20:00)
[2020-11-16] MEDS ORDERED: MORPHINE 4 MG SYG IV ONE (20:00)
[2020-11-16] MEDS ORDERED: ONDANSETRON 4MG INJ IVP ONE (20:00)
[2020-11-16] MEDS ORDERED: ASPIRIN 325MG EC TAB PO ONE (20:00)
[2020-11-16 20:56] LABS: CRP QUANTITATIVE 16.3 mg/L (0.00-9.0)
[2020-11-16 21:00] VITALS: BP 155/72
[2020-11-16 21:07] LABS: INR 1.05 (0.85-1.15); PROTHROMBIN TIME 11.4 SEC (9.6-11.6)
[2020-11-16 21:09] LABS: PARTIAL THROMBOPLASTIN TIME 32.8 SEC (26.3-35.5)
[2020-11-16] MEDS ORDERED: MAG/ALUM/SIMETH 30 ML UDCUP PO PRN (22:00)
[2020-11-16] MEDS ORDERED: ZOLPIDEM TARTRATE 5 MG TAB PO PRN (22:00)
[2020-11-16] MEDS ORDERED: GUAIFENESIN-DM 200/20 MG 10 ML PO PRN (22:00)
[2020-11-16] MEDS ORDERED: ONDANSETRON 4MG INJ IV PRN (22:00)
[2020-11-16] MEDS ORDERED: NITROGLYCERIN 0.4 MG SL TAB SL PRN (22:00)
[2020-11-16] MEDS ORDERED: BENZONATATE 100 MG CAPSULE PO PRN (22:00)
[2020-11-16] MEDS ORDERED: ACETAMINOPHEN 325 MG TAB PO PRN ×2 (22:00)
[2020-11-16] MEDS ORDERED: MORPHINE 2 MG SYG IV PRN (22:00)
[2020-11-16] MEDS ORDERED: LACTULOSE 20 GM/30 ML UDCUP PO PRN (22:00)
[2020-11-16 22:34] LABS: ABG OXYGEN SATURATION 96.3 % (95.0-99.0); ABG PCO2 32 mmHg (32-45)
[2020-11-16] MEDS ORDERED: GLUCAGON 1MG KIT 1 MG ML IM PRN (23:30)
[2020-11-16] MEDS ORDERED: DEXTROSE 50%-WATER 50 ML DISP.SYRIN IV PRN (23:30)
[2020-11-16] MEDS ORDERED: LABETALOL 20MG VIAL IV PRN (23:30)
[2020-11-16] MEDS ORDERED: KCL 20 MEQ ERTAB PO STA (23:38)
[2020-11-17] VITALS (7 sets, daily range): BP systolic 92–148; BP diastolic 51–82
[2020-11-17] MEDS ORDERED: POTASSIUM CHLORIDE 10% ELIXIR 20 MEQ/15 ML UDCUP PO PRN
[2020-11-17] MEDS ORDERED: KCL 20 MEQ ERTAB PO PRN
[2020-11-17] MEDS ORDERED: POTASSIUM CHLORIDE 20MEQ/100ML 100 ML IV PRN
[2020-11-17] MEDS: 0.9%NACL 1000ML 1,000 ML IV SCH (05:41)
[2020-11-17] MEDS: LEVOTHYROXINE 25 MCG TABLET PO SCH (05:42)
[2020-11-17] MEDS: INSULIN HUMULIN R 100 UNIT/ML 3ML SQ SCH ×4 (06:31→19:57)
[2020-11-17 06:33] LABS: HEMATOCRIT 34.9 % (36-48); LYMPHOCYTES % (AUTO) 32.1 % (21.0-51.0); MEAN CORPUSCULAR HEMOGLOBIN 26.8 pg (27.0-33.0); MEAN CORPUSCULAR HGB CONC 32.4 g/dL (32.0-36.0); MEAN CORPUSCULAR VOLUME 82.7 fL (79-99); MONOCYTES % (AUTO) 13.4 % (3.0-13.0); NEUTROPHILS % (AUTO) 50.5 % (40.0-77.0); PLATELET COUNT (AUTO) 290 K/uL (130-400); RED BLOOD CELL COUNT(AUTO) 4.22 MIL/uL (4.00-5.50); RED CELL DISTRIBUTION WIDTH 16.4 % (11.0-15.5); WHITE BLOOD COUNT (AUTO) 2.8 K/uL (4.8-10.8)
[2020-11-17 06:58] LABS: ALBUMIN 3.2 g/dL (3.5-5.0); BILIRUBIN,TOTAL 0.3 mg/dL (0.2-1.0); CREATININE 0.8 mg/dL (0.5-1.5); CRP QUANTITATIVE 14.8 mg/L (0.00-9.0); POTASSIUM 3.9 mmol/L (3.5-5.1); THYROID STIMULATING HORMONE 1.34 uIU/mL (0.36-3.74); TOTAL PROTEIN, SERUM 7.3 g/dL (6.0-8.3)
[2020-11-17] MEDS ORDERED: SUCRALFATE 1 GM TABLET PO SCH (07:30)
[2020-11-17] MEDS ORDERED: AMITRIPTYLINE 25 MG TABLET PO SCH ×2 (07:30→21:00)
[2020-11-17] MEDS ORDERED: ENOXAPARIN SODIUM 30 MG/0.3 ML SQ SCH (09:00)
[2020-11-17] MEDS ORDERED: FAMOTIDINE 20MG VIAL IV SCH (09:00)
[2020-11-17] MEDS: DILTIAZEM 60MG TAB PO SCH ×3 (10:01→19:56)
[2020-11-17] MEDS: ASPIRIN 81 MG EC TAB PO SCH (10:01)
[2020-11-17] MEDS: CLONAZEPAM 1MG TAB PO SCH ×3 (10:03→19:57)
[2020-11-17] MEDS: PANTOPRAZOLE 40 MG/VIAL IVP SCH ×2 (10:03→19:56)
[2020-11-17] MEDS: METOCLOPRAMIDE 10 MG/2 ML VIAL IVP SCH ×4 (10:03→19:56)
[2020-11-17] MEDS: LISINOPRIL 20 MG TABLET PO SCH (10:03)
[2020-11-17] MEDS: ENOXAPARIN SODIUM 30 MG/0.3 ML SQ SCH (10:03)
[2020-11-17 10:40] LABS: EOSINOPHILS % (MANUAL) 3 % (1-6); LYMPHOCYTES % (MANUAL) 37 % (22-44); MAN.DIFF COMMENT-IMPRESSION MANUAL DIFFERENTIAL; MONOCYTES % (MANUAL) 5 % (2-9); PLATELET MORPHOLOGY COMMENT ADEQUATE; SEGMENTED NEUTROPHILS % 55 % (40-70)
[2020-11-17] MEDS: SUCRALFATE 1 GM TABLET PO SCH ×3 (11:30→19:56)
[2020-11-18 00:10] VITALS: BP 143/76
[2020-11-18] MEDS: 0.9%NACL 1000ML 1,000 ML IV SCH ×2 (00:51→13:53)
[2020-11-18] MEDS: DILTIAZEM 60MG TAB PO SCH ×3 (00:52→13:54)
[2020-11-18 04:01] VITALS: BP 131/73
[2020-11-18 05:52] LABS: BASOPHILS % (AUTO) 0.4 % (0.0-5.0); EOSINOPHILS % (AUTO) 5.9 % (0.0-8.0); LYMPHOCYTES % (AUTO) 36.2 % (21.0-51.0); MEAN CORPUSCULAR HEMOGLOBIN 26.6 pg (27.0-33.0); MEAN CORPUSCULAR HGB CONC 32.7 g/dL (32.0-36.0); MEAN CORPUSCULAR VOLUME 81.3 fL (79-99); MONOCYTES % (AUTO) 10.2 % (3.0-13.0); NEUTROPHILS % (AUTO) 46.9 % (40.0-77.0); PLATELET COUNT (AUTO) 268 K/uL (130-400); RED BLOOD CELL COUNT(AUTO) 4.06 MIL/uL (4.00-5.50); RED CELL DISTRIBUTION WIDTH 16.2 % (11.0-15.5); WHITE BLOOD COUNT (AUTO) 2.5 K/uL (4.8-10.8)
[2020-11-18 06:06] LABS: ALBUMIN 2.8 g/dL (3.5-5.0); BILIRUBIN,TOTAL 0.3 mg/dL (0.2-1.0); CREATININE 0.7 mg/dL (0.5-1.5); CRP QUANTITATIVE 22.1 mg/L (0.00-9.0); POTASSIUM 3.5 mmol/L (3.5-5.1); TOTAL PROTEIN, SERUM 6.6 g/dL (6.0-8.3)
[2020-11-18] MEDS: LEVOTHYROXINE 25 MCG TABLET PO SCH (06:24)
[2020-11-18] MEDS: INSULIN HUMULIN R 100 UNIT/ML 3ML SQ SCH ×3 (06:28→16:30)
[2020-11-18 08:00] VITALS: BP 158/82
[2020-11-18] MEDS: ASPIRIN 81 MG EC TAB PO SCH (08:27)
[2020-11-18] MEDS: METOCLOPRAMIDE 10 MG/2 ML VIAL IVP SCH ×3 (08:28→16:30)
[2020-11-18] MEDS: SUCRALFATE 1 GM TABLET PO SCH ×3 (08:28→16:53)
[2020-11-18] MEDS: LISINOPRIL 20 MG TABLET PO SCH (08:28)
[2020-11-18] MEDS: CLONAZEPAM 1MG TAB PO SCH ×2 (08:29→13:53)
[2020-11-18] MEDS: PANTOPRAZOLE 40 MG/VIAL IVP SCH (08:29)
[2020-11-18] MEDS: ENOXAPARIN SODIUM 30 MG/0.3 ML SQ SCH (08:30)
[2020-11-18 16:00] VITALS: BP 141/70
[2020-11-18] MEDS ORDERED: AMIT25TA9 PO (16:53)
[2020-11-18] MEDS ORDERED: CARAL PO (16:53)
[2020-11-18] MEDS ORDERED: BENZ-70 PO (16:53)
[2020-11-18] MEDS ORDERED: PANT40SU PO (16:53)
[2020-11-18] MEDS ORDERED: METO-296 PO (16:53)
== END 2020-11-18 18:41 | disposition home or self-care (01) ==
LOC: EDH 18:24 → EDHIP 21:17 → 4AH 11-17 01:49
PROVIDERS: ADMIT Internal Medicine Pulmonary Disease; ATTEND Internal Medicine Pulmonary Disease
DX: U07.1 COVID-19 (principal); R10.13 Epigastric pain; K29.70 Gastritis, unspecified, without bleeding; K57.90 Diverticulosis of intestine, part unspecified, without perforation or abscess without bleeding; R77.8 Other specified abnormalities of plasma proteins; F41.9 Anxiety disorder, unspecified; F11.10 Opioid abuse, uncomplicated; I10 Essential (primary) hypertension; E03.9 Hypothyroidism, unspecified; M48.00 Spinal stenosis, site unspecified; M71.20 Synovial cyst of popliteal space [Baker], unspecified knee; K44.9 Diaphragmatic hernia without obstruction or gangrene; G93.40 Encephalopathy, unspecified; F13.10 Sedative, hypnotic or anxiolytic abuse, uncomplicated; F41.1 Generalized anxiety disorder; G89.29 Other chronic pain; I44.7 Left bundle-branch block, unspecified; K31.84 Gastroparesis; K52.9 Noninfective gastroenteritis and colitis, unspecified; K57.30 Diverticulosis of large intestine without perforation or abscess without bleeding; N39.0 Urinary tract infection, site not specified; Z79.82 Long term (current) use of aspirin; Z90.710 Acquired absence of both cervix and uterus; Z90.49 Acquired absence of other specified parts of digestive tract; Z79.899 Other long term (current) drug therapy; Z98.890 Other specified postprocedural states; Z76.5 Malingerer [conscious simulation]
CPT/HCPCS: 36415; 36600; 71045; 76700; 80053; 81001; 82150; 82550; 82803; 82948; 83615; 83690; 83880; 84145; 84443; 84484; 85025; 85378; 85610; 85730; 86140; 86677; 87635; 93005; 96361; 96372; 96374; 96375; 96376; C9113; C9803; G0378; J1650; J2060; J2270; J2765; J3490; J7030

== ENCOUNTER 2020-11-21 16:37 | Emergency (ER) | payer MEDICARE ==
[~2020-11-21] VITALS: Ht 152.4 cm; Wt 50.8 kg
[~2020-11-21 16:37] MED LIST changes: +AMIT25TA9 PO; +BENZ-70 PO; +CARAL PO; -FAMO20TA8 PO; +METO-296 PO; +PANT40SU PO
[2020-11-21] MEDS ORDERED: FAMOTIDINE 20MG VIAL IV STA (18:48)
[2020-11-21] MEDS ORDERED: ONDANSETRON 4MG INJ IVP ONE (19:00)
[2020-11-21] MEDS ORDERED: KETOROLAC 15MG/ML VIAL (15MG/ML) ONE (19:08)
[2020-11-21] MEDS ORDERED: KETOROLAC 15MG/ML VIAL (15MG/ML) IV ONE (19:30)
[2020-11-21 20:31] LABS: ABG BASE EXCESS -1.6 mmol/L (-2.0-3.0); ABG HCO3 19.6 mmol/L (21.0-28.0); ABG OXYGEN SATURATION 97.5 % (95.0-99.0); ABG PCO2 25 mmHg (32-45)
[2020-11-21 21:52] LABS: BASOPHILS % (AUTO) 0.4 % (0.0-5.0); EOSINOPHILS % (AUTO) 1.4 % (0.0-8.0); HEMATOCRIT 39.7 % (36-48); LYMPHOCYTES % (AUTO) 21.7 % (21.0-51.0); MEAN CORPUSCULAR HEMOGLOBIN 26.7 pg (27.0-33.0); MEAN CORPUSCULAR HGB CONC 33.2 g/dL (32.0-36.0); MEAN CORPUSCULAR VOLUME 80.2 fL (79-99); NEUTROPHILS % (AUTO) 61.7 % (40.0-77.0); PLATELET COUNT (AUTO) 349 K/uL (130-400); RED BLOOD CELL COUNT(AUTO) 4.95 MIL/uL (4.00-5.50); RED CELL DISTRIBUTION WIDTH 15.7 % (11.0-15.5); WHITE BLOOD COUNT (AUTO) 5.2 K/uL (4.8-10.8)
[2020-11-21 22:02] LABS: CREATININE 1.2 mg/dL (0.5-1.5); POTASSIUM 3.3 mmol/L (3.5-5.1)
[2020-11-21 22:04] LABS: ALBUMIN 3.3 g/dL (3.5-5.0); BILIRUBIN,TOTAL 0.5 mg/dL (0.2-1.0); TOTAL PROTEIN, SERUM 8.3 g/dL (6.0-8.3)
[2020-11-21] MEDS ORDERED: 0.9% NACL 500ML IV.SOLN 500 ML IV STA (22:47)
[2020-11-21] MEDS ORDERED: 0.9% NACL 500ML IV.SOLN 500 ML IV ONE (22:53)
[2020-11-21] MEDS ORDERED: AZIT1PAC PO (23:20)
[2020-11-21] MEDS ORDERED: ONDA4TAB4 PO (23:20)
[2020-11-21] MEDS ORDERED: DICY10 PO (23:20)
[2020-11-21] MEDS ORDERED: ALBU6.7H9 IH (23:20)
[2020-11-22 00:03] VITALS: BP 142/82
== END 2020-11-22 00:32 | disposition home or self-care (01) ==
LOC: EDH 16:37
DX: U07.1 COVID-19 (principal); R10.9 Unspecified abdominal pain; I10 Essential (primary) hypertension; Z88.0 Allergy status to penicillin; Z88.1 Allergy status to other antibiotic agents; Z79.899 Other long term (current) drug therapy
CPT/HCPCS: 36415; 71045; 74176; 80053; 82150; 82803; 83690; 85025; 87635; 93005; 96374; 96375; 99285; C9803; J1885; J2405; J3490; J7040

== ENCOUNTER 2020-11-27 12:32 | Emergency (ER) | payer MEDICARE ==
[~2020-11-27] VITALS: Ht 152.4 cm; Wt 49.9 kg
[~2020-11-27 12:32] MED LIST changes: +ALBU6.7H9 IH; +AZIT1PAC PO; +DICY10 PO; +ONDA4TAB4 PO
[2020-11-27 13:35] LABS: APPEARANCE,URINE Clear (CLEAR); BILIRUBIN,URINE Negative (NEGATIVE); COLOR,URINE Dark Yellow (YELLOW); GLUCOSE, URINE (UA) Negative (NEGATIVE); KETONES,URINE 15 mg/dL (NEGATIVE); LEUKOCYTE ESTERASE ,URINE Trace (NEGATIVE); NITRATE,URINE Negative (NEGATIVE); OCCULT BLOOD,URINE Negative (NEGATIVE); PROTEIN,URINE POS 2+ mg/dL (NEGATIVE)
[2020-11-27 13:39] LABS: BACTERIA,URINE Rare /HPF (None Seen); MUCUS,URINE Few LPF (None Seen); RBC,URINE 0-1 /HPF (0-1); SQUAMOUS EPITHELIAL CELL,UR Rare /HPF (0-2); WBC,URINE 0-1 /HPF (0-1)
[2020-11-27 14:51] VITALS: BP 142/77
[2020-11-27] MEDS ORDERED: MACR100 PO (14:58)
== END 2020-11-27 15:23 | disposition home or self-care (01) ==
LOC: EDH 12:32
DX: R33.9 Retention of urine, unspecified (principal); R10.30 Lower abdominal pain, unspecified; F41.9 Anxiety disorder, unspecified; G89.29 Other chronic pain; E03.9 Hypothyroidism, unspecified; Z88.0 Allergy status to penicillin; Z88.1 Allergy status to other antibiotic agents; Z91.018 Allergy to other foods; Z79.899 Other long term (current) drug therapy; Z98.890 Other specified postprocedural states
CPT/HCPCS: 51702; 81001

== ENCOUNTER 2021-08-12 21:02 | Observation (INO) | payer OTHER ==
[~2021-08-12] VITALS: Ht 152.4 cm; Wt 39.1 kg
[~2021-08-12 21:02] MED LIST changes: -ACET-2743 PO; -ALBU6.7H9 IH; -AMIT25TA9 PO; -AZIT1PAC PO; -BENZ-70 PO; -BUPR1FIL SL; +BUPR1TAB44 SL; -CARAL PO; -CLON1TAB12 PO; -DICY10 PO; +LEVO25CA4 PO; -LEVO25TA54 PO; -LIDOCAINE 4% TD; +LORA-192 PO; -METO-296 PO; -ONDA4TAB4 PO; -PANT40SU PO; +PANT40TA PO
[2021-08-12 21:30] LABS: BASOPHILS % (AUTO) 0.3 % (0.0-5.0); EOSINOPHILS % (AUTO) 3.3 % (0.0-8.0); HEMATOCRIT 37.6 % (36-48); LYMPHOCYTES % (AUTO) 29.4 % (21.0-51.0); MEAN CORPUSCULAR HEMOGLOBIN 27.3 pg (27.0-33.0); MEAN CORPUSCULAR HGB CONC 33.2 g/dL (32.0-36.0); MEAN CORPUSCULAR VOLUME 82.1 fL (79-99); MONOCYTES % (AUTO) 9.9 % (3.0-13.0); NEUTROPHILS % (AUTO) 56.8 % (40.0-77.0); PLATELET COUNT (AUTO) 366 K/uL (130-400); RED BLOOD CELL COUNT(AUTO) 4.58 MIL/uL (4.00-5.50); RED CELL DISTRIBUTION WIDTH 15.9 % (11.0-15.5); WHITE BLOOD COUNT (AUTO) 6.6 K/uL (4.8-10.8)
[2021-08-12 21:42] LABS: CREATININE 0.8 mg/dL (0.5-1.5); POTASSIUM 3.5 mmol/L (3.5-5.1)
[2021-08-12 21:51] LABS: ALBUMIN 3.7 g/dL (3.5-5.0); BILIRUBIN,TOTAL 0.5 mg/dL (0.2-1.0); TOTAL PROTEIN, SERUM 7.6 g/dL (6.0-8.3)
[2021-08-12] MEDS ORDERED: ONDANSETRON 4MG INJ IVP ONE (22:00)
[2021-08-12] MEDS ORDERED: MORPHINE 2 MG SYG IVP ONE (22:00)
[2021-08-12] MEDS ORDERED: FAMOTIDINE 20MG VIAL IV ONE (22:00)
[2021-08-12 22:12] LABS: APPEARANCE,URINE CLEAR (CLEAR); BILIRUBIN,URINE NEGATIVE (NEGATIVE); COLOR,URINE YELLOW (YELLOW); GLUCOSE, URINE (UA) NEGATIVE (NEGATIVE); KETONES,URINE NEGATIVE (NEGATIVE); LEUKOCYTE ESTERASE ,URINE TRACE (NEGATIVE); NITRATE,URINE NEGATIVE (NEGATIVE); OCCULT BLOOD,URINE NEGATIVE (NEGATIVE); PROTEIN,URINE NEGATIVE (NEGATIVE); UROBILINOGEN,URINE 0.2 mg/dL (0.2-1.0)
[2021-08-12 22:20] LABS: BACTERIA,URINE Few /HPF (None Seen); MUCUS,URINE Few LPF (None Seen); WBC,URINE 0-1 /HPF (0-1)
[2021-08-12] MEDS ORDERED: 0.9% NACL 500ML IV.SOLN 500 ML IV ONE (22:30)
[2021-08-12] MEDS ORDERED: MORPHINE 2 MG SYG ONE (23:38)
[2021-08-13] MEDS: 0.9%NACL 1000ML 1,000 ML IV SCH ×3 (00:21→22:00)
[2021-08-13] MEDS ORDERED: ONDANSETRON 4MG INJ IVP PRN (00:30)
[2021-08-13] MEDS ORDERED: TEMAZEPAM 15 MG CAPSULE PO PRN (00:30)
[2021-08-13] MEDS ORDERED: HYDRALAZINE 20MG/ML VIAL IV PRN (00:30)
[2021-08-13] MEDS ORDERED: LACTULOSE 20 GM/30 ML UDCUP PO PRN (00:30)
[2021-08-13] MEDS ORDERED: BUPR1FIL5 SL ×2 (00:35)
[2021-08-13] MEDS ORDERED: LEVO25CA4 PO ×2 (00:35)
[2021-08-13] MEDS ORDERED: LISI20TA24 PO ×2 (00:35)
[2021-08-13] MEDS ORDERED: LORA-192 PO ×2 (00:35)
[2021-08-13] MEDS ORDERED: LORAZEPAM 1 MG TABLET ONE ×2 (02:15→17:08)
[2021-08-13] MEDS: INSULIN LISPRO 100 UNIT/ML 3ML SQ SCH ×4 (07:30→21:00)
[2021-08-13] MEDS ORDERED: LORAZEPAM 1 MG TABLET PO ONE (09:00)
[2021-08-13] MEDS: PANTOPRAZOLE 40 MG/VIAL IVP SCH (09:30)
[2021-08-13] MEDS: ENOXAPARIN SODIUM 30 MG/0.3 ML SQ SCH (09:30)
[2021-08-13] MEDS ORDERED: LORAZEPAM 1 MG TABLET PO PRN (17:30)
[2021-08-13] MEDS: LORAZEPAM 1 MG TABLET PO SCH (22:00)
[2021-08-13 22:40] VITALS: BP 135/79
[2021-08-14] VITALS (13 sets, daily range): BP systolic 137–167; BP diastolic 68–91
[2021-08-14 05:35] LABS: BASOPHILS % (AUTO) 0.8 % (0.0-5.0); EOSINOPHILS % (AUTO) 6.8 % (0.0-8.0); MEAN CORPUSCULAR HEMOGLOBIN 27.6 pg (27.0-33.0); MEAN CORPUSCULAR HGB CONC 33.1 g/dL (32.0-36.0); MEAN CORPUSCULAR VOLUME 83.3 fL (79-99); MONOCYTES % (AUTO) 10.8 % (3.0-13.0); NEUTROPHILS % (AUTO) 52.2 % (40.0-77.0); PLATELET COUNT (AUTO) 311 K/uL (130-400); RED CELL DISTRIBUTION WIDTH 15.6 % (11.0-15.5); WHITE BLOOD COUNT (AUTO) 5.3 K/uL (4.8-10.8)
[2021-08-14] MEDS: LEVOTHYROXINE 25 MCG TABLET PO SCH (05:42)
[2021-08-14] MEDS: 0.9%NACL 1000ML 1,000 ML IV SCH ×2 (05:42→17:24)
[2021-08-14] MEDS: INSULIN LISPRO 100 UNIT/ML 3ML SQ SCH ×4 (05:42→20:41)
[2021-08-14 06:17] LABS: ALBUMIN 2.9 g/dL (3.5-5.0); BILIRUBIN,TOTAL 0.4 mg/dL (0.2-1.0); CREATININE 0.6 mg/dL (0.5-1.5); MAGNESIUM 1.9 mg/dL (1.80-2.40); PHOSPHORUS 3.4 mg/dL (2.5-4.9); POTASSIUM 3.5 mmol/L (3.5-5.1); TOTAL PROTEIN, SERUM 6.3 g/dL (6.0-8.3)
[2021-08-14] MEDS: LORAZEPAM 1 MG TABLET PO SCH ×3 (06:54→20:43)
[2021-08-14] MEDS: ENOXAPARIN SODIUM 30 MG/0.3 ML SQ SCH (09:00)
[2021-08-14] MEDS: METRONIDAZOLE 500 MG TABLET PO SCH ×3 (09:00→17:24)
[2021-08-14] MEDS: BUPRENORPHINE HCL SL SCH (09:00)
[2021-08-14] MEDS: PANTOPRAZOLE 40 MG TAB DR PO SCH (09:00)
[2021-08-14] MEDS: NALOXONE HCL SL SCH (09:00)
[2021-08-14] MEDS: LISINOPRIL 20 MG TABLET PO SCH (09:54)
[2021-08-14] MEDS: PANTOPRAZOLE 40 MG/VIAL IVP SCH (09:54)
[2021-08-14] MEDS: LORAZEPAM 0.5 MG TABLET PO SCH (11:07)
[2021-08-14] MEDS ORDERED: PROPOFOL 10 MG/ML 20ML VIAL IV ONE (12:37)
[2021-08-14] MEDS: HYDROMORPHONE 1 MG INJ IVP PRN (19:28)
[2021-08-14] MEDS ORDERED: LIDOCAINE HCL-MPF 1% 2ML VIAL IV PRN (20:30)
[2021-08-14] MEDS ORDERED: KCL 20 MEQ ERTAB PO PRN (20:30)
[2021-08-14] MEDS ORDERED: MAGNESIUM 2GM PREMIX 50ML 50 ML IV PRN (20:30)
[2021-08-14] MEDS ORDERED: POTASSIUM CHLORIDE 20MEQ/100ML 100 ML IV PRN (20:30)
[2021-08-15] MEDS: METRONIDAZOLE 500 MG TABLET PO SCH ×3 (00:45→18:59)
[2021-08-15 04:00] VITALS: BP 141/77
[2021-08-15 05:12] LABS: BASOPHILS % (AUTO) 0.5 % (0.0-5.0); EOSINOPHILS % (AUTO) 5.2 % (0.0-8.0); HEMATOCRIT 34.6 % (36-48); LYMPHOCYTES % (AUTO) 26.4 % (21.0-51.0); MEAN CORPUSCULAR HEMOGLOBIN 27.1 pg (27.0-33.0); MEAN CORPUSCULAR HGB CONC 32.9 g/dL (32.0-36.0); MEAN CORPUSCULAR VOLUME 82.4 fL (79-99); MONOCYTES % (AUTO) 10.7 % (3.0-13.0); NEUTROPHILS % (AUTO) 56.9 % (40.0-77.0); PLATELET COUNT (AUTO) 331 K/uL (130-400); RED CELL DISTRIBUTION WIDTH 15.5 % (11.0-15.5)
[2021-08-15 05:30] LABS: ALBUMIN 2.9 g/dL (3.5-5.0); BILIRUBIN,TOTAL 0.5 mg/dL (0.2-1.0); CREATININE 0.6 mg/dL (0.5-1.5); MAGNESIUM 1.4 mg/dL (1.80-2.40); TOTAL PROTEIN, SERUM 6.1 g/dL (6.0-8.3)
[2021-08-15 05:33] LABS: POTASSIUM 2.6 mmol/L (3.5-5.1)
[2021-08-15] MEDS: POTASSIUM CHLORIDE 10% ELIXIR 20 MEQ/15 ML UDCUP PO PRN ×2 (05:56→05:57)
[2021-08-15] MEDS: LEVOTHYROXINE 25 MCG TABLET PO SCH (05:56)
[2021-08-15] MEDS: INSULIN LISPRO 100 UNIT/ML 3ML SQ SCH ×4 (06:37→20:50)
[2021-08-15 08:00] VITALS: BP 151/81
[2021-08-15] MEDS ORDERED: MAGNESIUM 2GM PREMIX 50ML 50 ML IV PRN (09:00)
[2021-08-15] MEDS ORDERED: POTASSIUM CHLORIDE 10% ELIXIR 20 MEQ/15 ML UDCUP PO PRN (09:00)
[2021-08-15] MEDS ORDERED: LIDOCAINE HCL-MPF 1% 2ML VIAL IV PRN (09:00)
[2021-08-15] MEDS: PANTOPRAZOLE 40 MG/VIAL IVP SCH (09:00)
[2021-08-15] MEDS ORDERED: POTASSIUM CHLORIDE 20MEQ/100ML 100 ML IV PRN (09:00)
[2021-08-15] MEDS ORDERED: KCL 20 MEQ ERTAB PO PRN (09:00)
[2021-08-15] MEDS: BUPRENORPHINE HCL SL SCH (09:00)
[2021-08-15] MEDS: NALOXONE HCL SL SCH (09:00)
[2021-08-15] MEDS: HYDROMORPHONE 1 MG INJ IVP PRN (09:01)
[2021-08-15] MEDS: LISINOPRIL 20 MG TABLET PO SCH (09:01)
[2021-08-15] MEDS: ENOXAPARIN SODIUM 30 MG/0.3 ML SQ SCH (09:01)
[2021-08-15] MEDS: PANTOPRAZOLE 40 MG TAB DR PO SCH (09:01)
[2021-08-15] MEDS: LORAZEPAM 1 MG TABLET PO SCH ×3 (09:19→20:50)
[2021-08-15] MEDS: LORAZEPAM 0.5 MG TABLET PO SCH (11:00)
[2021-08-15 12:00] VITALS: BP 160/90
[2021-08-15 12:40] VITALS: BP 143/68
[2021-08-15 16:00] VITALS: BP 158/93
[2021-08-15 19:00] VITALS: BP 158/91
[2021-08-16] VITALS: BP 160/90
[2021-08-16] MEDS: METRONIDAZOLE 500 MG TABLET PO SCH ×2 (00:48→08:41)
[2021-08-16 04:00] VITALS: BP 159/91
[2021-08-16 05:44] LABS: HEMATOCRIT 34.7 % (36-48); MEAN CORPUSCULAR HEMOGLOBIN 27.4 pg (27.0-33.0); MEAN CORPUSCULAR HGB CONC 33.4 g/dL (32.0-36.0); RED BLOOD CELL COUNT(AUTO) 4.23 MIL/uL (4.00-5.50); RED CELL DISTRIBUTION WIDTH 15.5 % (11.0-15.5); WHITE BLOOD COUNT (AUTO) 6.2 K/uL (4.8-10.8)
[2021-08-16] MEDS: LEVOTHYROXINE 25 MCG TABLET PO SCH (06:02)
[2021-08-16 06:37] LABS: BILIRUBIN,TOTAL 0.3 mg/dL (0.2-1.0); CREATININE 0.6 mg/dL (0.5-1.5); POTASSIUM 3.3 mmol/L (3.5-5.1); TOTAL PROTEIN, SERUM 6.5 g/dL (6.0-8.3)
[2021-08-16] MEDS: ENOXAPARIN SODIUM 30 MG/0.3 ML SQ SCH (08:41)
[2021-08-16] MEDS: PANTOPRAZOLE 40 MG TAB DR PO SCH (08:41)
[2021-08-16] MEDS: LISINOPRIL 20 MG TABLET PO SCH (08:41)
[2021-08-16] MEDS: HYDROMORPHONE 1 MG INJ IVP PRN (08:44)
[2021-08-16] MEDS: NALOXONE HCL SL SCH (09:00)
[2021-08-16] MEDS: PANTOPRAZOLE 40 MG/VIAL IVP SCH (09:00)
[2021-08-16] MEDS: BUPRENORPHINE HCL SL SCH (09:00)
[2021-08-16 09:12] VITALS: BP 152/104
[2021-08-16] MEDS: LORAZEPAM 1 MG TABLET PO SCH ×2 (09:13→13:48)
[2021-08-16] MEDS: LORAZEPAM 0.5 MG TABLET PO SCH (11:00)
[2021-08-16 12:07] VITALS: BP 136/73
== END 2021-08-16 15:20 | disposition home or self-care (01) ==
LOC: EDH 21:02 → EDHIP 08-13 00:01 → 3AH 08-13 22:23
PROVIDERS: ADMIT Internal Medicine Pulmonary Disease; ATTEND Internal Medicine Pulmonary Disease
DX: K52.9 Noninfective gastroenteritis and colitis, unspecified (principal); Z20.822 Contact with and (suspected) exposure to COVID-19; R41.82 Altered mental status, unspecified; I10 Essential (primary) hypertension; E78.5 Hyperlipidemia, unspecified; M48.00 Spinal stenosis, site unspecified; K57.92 Diverticulitis of intestine, part unspecified, without perforation or abscess without bleeding; E46 Unspecified protein-calorie malnutrition; E86.0 Dehydration; R51.9 Headache, unspecified; N39.0 Urinary tract infection, site not specified; D72.829 Elevated white blood cell count, unspecified; E44.0 Moderate protein-calorie malnutrition; E83.42 Hypomagnesemia; E87.6 Hypokalemia; F41.9 Anxiety disorder, unspecified; I25.2 Old myocardial infarction; K29.70 Gastritis, unspecified, without bleeding; F03.90 Unspecified dementia, unspecified severity, without behavioral disturbance, psychotic disturbance, mood disturbance, and anxiety; K57.12 Diverticulitis of small intestine without perforation or abscess without bleeding; R77.8 Other specified abnormalities of plasma proteins; K59.09 Other constipation; Z68.1 Body mass index [BMI] 19.9 or less, adult; Z79.899 Other long term (current) drug therapy; Z98.890 Other specified postprocedural states; Z90.49 Acquired absence of other specified parts of digestive tract; Z90.710 Acquired absence of both cervix and uterus; Z96.653 Presence of artificial knee joint, bilateral; Z87.440 Personal history of urinary (tract) infections; Z88.0 Allergy status to penicillin
CPT/HCPCS: 36415 ×4; 43239; 71045; 74176; 76700; 80053 ×4; 81001; 82150; 82270; 82550; 82948 ×9; 83690 ×3; 83735 ×2; 84100; 84145; 84484 ×5; 85025 ×3; 85027; 87635; 93005 ×2; 96361 ×3; 96372 ×3; 96374; 96375 ×4; 96376 ×3; 99285; A4215; A4222; A4223; A4606; A4620; C9113 ×2; G0378 ×84; J1170 ×3; J1650 ×3; J2405; J2704; J3475; J7030 ×2; J7040; 88305; 88342

== ENCOUNTER 2021-08-22 23:34 | Emergency (ER) | payer OTHER ==
[~2021-08-22] VITALS: Ht 152.4 cm; Wt 40.8 kg
[~2021-08-22 23:34] MED LIST changes: +BUPR1FIL5 SL
[2021-08-23 00:38] LABS: BASOPHILS % (AUTO) 0.5 % (0.0-5.0); EOSINOPHILS % (AUTO) 1.3 % (0.0-8.0); HEMATOCRIT 37.2 % (36-48); LYMPHOCYTES % (AUTO) 16.2 % (21.0-51.0); MEAN CORPUSCULAR HEMOGLOBIN 27.4 pg (27.0-33.0); MEAN CORPUSCULAR HGB CONC 32.8 g/dL (32.0-36.0); MEAN CORPUSCULAR VOLUME 83.6 fL (79-99); MONOCYTES % (AUTO) 8.3 % (3.0-13.0); NEUTROPHILS % (AUTO) 73.2 % (40.0-77.0); PLATELET COUNT (AUTO) 426 K/uL (130-400); RED BLOOD CELL COUNT(AUTO) 4.45 MIL/uL (4.00-5.50); RED CELL DISTRIBUTION WIDTH 14.9 % (11.0-15.5); WHITE BLOOD COUNT (AUTO) 7.5 K/uL (4.8-10.8)
[2021-08-23] MEDS ORDERED: KETOROLAC 15MG/ML VIAL (15MG/ML) IV ONE (01:30)
[2021-08-23] MEDS ORDERED: 0.9%NACL 1000ML 1,000 ML IV ONE (01:30)
[2021-08-23] MEDS ORDERED: ONDANSETRON 4MG INJ IVP ONE (01:30)
[2021-08-23 01:45] VITALS: BP 130/89
[2021-08-23 02:02] LABS: ALBUMIN 3.7 g/dL (3.5-5.0); BILIRUBIN,TOTAL 0.4 mg/dL (0.2-1.0); CREATININE 0.9 mg/dL (0.5-1.5); POTASSIUM 3.8 mmol/L (3.5-5.1); TOTAL PROTEIN, SERUM 7.6 g/dL (6.0-8.3)
[2021-08-23] MEDS ORDERED: METO5 PO (03:04)
== END 2021-08-23 03:18 | disposition home or self-care (01) ==
LOC: EDH 23:34
DX: R10.12 Left upper quadrant pain (principal); R10.13 Epigastric pain; I10 Essential (primary) hypertension; E03.9 Hypothyroidism, unspecified; Z88.0 Allergy status to penicillin; Z88.1 Allergy status to other antibiotic agents; Z88.8 Allergy status to other drugs, medicaments and biological substances; Z91.018 Allergy to other foods; Z79.899 Other long term (current) drug therapy; Z98.890 Other specified postprocedural states
CPT/HCPCS: 36415; 74176; 80053; 83690; 84484; 85025; 96361; 96374; 96375; 99284; J1885; J2405; J7030

== ENCOUNTER 2022-04-01 21:13 | Observation (INO) | payer MEDICARE, OTHER ==
[~2022-04-01] VITALS: Ht 152.4 cm; Wt 44.8 kg
[~2022-04-01 21:13] MED LIST changes: -BUPR1TAB44 SL; +METO5 PO
[2022-04-01 23:02] LABS: BASOPHILS % (AUTO) 0.2 % (0.0-5.0); EOSINOPHILS % (AUTO) 1.6 % (0.0-8.0); LYMPHOCYTES % (AUTO) 7.3 % (21.0-51.0); MEAN CORPUSCULAR HEMOGLOBIN 26.7 pg (27.0-33.0); MEAN CORPUSCULAR HGB CONC 32.1 g/dL (32.0-36.0); MEAN CORPUSCULAR VOLUME 83.2 fL (79-99); MONOCYTES % (AUTO) 5.7 % (3.0-13.0); NEUTROPHILS % (AUTO) 84.7 % (40.0-77.0); PLATELET COUNT (AUTO) 333 K/uL (130-400); RED BLOOD CELL COUNT(AUTO) 4.69 MIL/uL (4.00-5.50); RED CELL DISTRIBUTION WIDTH 15.3 % (11.0-15.5)
[2022-04-01 23:12] LABS: CARBON DIOXIDE 30 mmol/L (21-32); CHLORIDE 104 mmol/L (101-111); CREATININE 1.2 mg/dL (0.5-1.5); GLOMERULAR FILTR. RATE CALC 46 mL/min (>60); GLUCOSE,RANDOM 115 mg/dL (70-105); POTASSIUM 3.9 mmol/L (3.5-5.1); SODIUM SERUM 139 mmol/L (136-145); UREA NITROGEN, BLOOD 32 mg/dL (7-18)
[2022-04-01 23:17] LABS: ALANINE AMINOTRANSFERASE 19 U/L (12-78); ALBUMIN 3.3 g/dL (3.5-5.0); AMYLASE 52 U/L (25-115); ASPARTATE AMINOTRANSFERASE 22 U/L (10-37); TOTAL PROTEIN, SERUM 7.4 g/dL (6.0-8.3)
[2022-04-01 23:29] LABS: LIPASE < 50 U/L (114-286)
[2022-04-01 23:36] LABS: PLATELET MORPHOLOGY PLT CLUMPS PRESENT
[2022-04-01 23:58] LABS: APPEARANCE,URINE CLEAR (CLEAR); BILIRUBIN,URINE NEGATIVE (NEGATIVE); COLOR,URINE YELLOW (YELLOW); GLUCOSE, URINE (UA) NEGATIVE (NEGATIVE); KETONES,URINE NEGATIVE (NEGATIVE); LEUKOCYTE ESTERASE ,URINE NEGATIVE Leu/uL (NEGATIVE); NITRATE,URINE NEGATIVE (NEGATIVE); OCCULT BLOOD,URINE NEGATIVE (NEGATIVE); PH,URINE 5.5 (5.0-8.0); PROTEIN,URINE 20 mg/dL (NEGATIVE); UROBILINOGEN,URINE 0.2 mg/dL (0.2-1.0)
[2022-04-02 00:01] LABS: MUCUS,URINE RARE LPF (None Seen); WBC,URINE 0-1 /HPF (0-1)
[2022-04-02] MEDS ORDERED: HYDRALAZINE 20MG/ML VIAL IV PRN (03:00)
[2022-04-02] MEDS ORDERED: ONDANSETRON 4MG INJ IVP PRN (03:00)
[2022-04-02] MEDS ORDERED: ACETAMINOPHEN 325 MG TAB PO ONE (03:00)
[2022-04-02] MEDS ORDERED: ALBUTEROL 0.083% 2.5 MG/3 ML INH IH PRN (03:00)
[2022-04-02] MEDS: LACTATED RINGERS 1000ML 1,000 ML IV SCH ×2 (03:26→16:41)
[2022-04-02 05:47] VITALS: BP 125/70
[2022-04-02 08:00] VITALS: BP 125/63
[2022-04-02 10:15] LABS: HEMATOCRIT 36.6 % (36-48); MEAN CORPUSCULAR HEMOGLOBIN 27.1 pg (27.0-33.0); MEAN CORPUSCULAR HGB CONC 31.7 g/dL (32.0-36.0); MEAN CORPUSCULAR VOLUME 85.5 fL (79-99); PLATELET COUNT (AUTO) 301 K/uL (130-400); RED BLOOD CELL COUNT(AUTO) 4.28 MIL/uL (4.00-5.50); RED CELL DISTRIBUTION WIDTH 15.4 % (11.0-15.5); WHITE BLOOD COUNT (AUTO) 10.2 K/uL (4.8-10.8)
[2022-04-02 10:52] LABS: CREATININE 1.5 mg/dL (0.5-1.5)
[2022-04-02 11:54] VITALS: BP 111/72
[2022-04-02 11:55] LABS: BAND NEUTROPHILS % (MANUAL) 3 % (0-2); EOSINOPHILS % (MANUAL) 3 % (1-6); LYMPHOCYTES % (MANUAL) 28 % (22-44); MAN.DIFF COMMENT-IMPRESSION MANUAL DIFFERENTIAL; MONOCYTES % (MANUAL) 2 % (2-9); PLATELET MORPHOLOGY COMMENT ADEQUATE; SEGMENTED NEUTROPHILS % 64 % (40-70)
[2022-04-02] MEDS ORDERED: ZOLP5TAB8 PO (14:57)
[2022-04-02 16:00] VITALS: BP 109/58
[2022-04-02 20:17] VITALS: BP 109/57
[2022-04-02 23:19] VITALS: BP 117/61
[2022-04-03 04:01] VITALS: BP 123/77
[2022-04-03] MEDS: LACTATED RINGERS 1000ML 1,000 ML IV SCH (05:40)
[2022-04-03 06:02] LABS: BASOPHILS % (AUTO) 0.5 % (0.0-5.0); EOSINOPHILS % (AUTO) 7.4 % (0.0-8.0); HEMATOCRIT 34.9 % (36-48); LYMPHOCYTES % (AUTO) 29.2 % (21.0-51.0); MEAN CORPUSCULAR HEMOGLOBIN 26.6 pg (27.0-33.0); MEAN CORPUSCULAR HGB CONC 31.8 g/dL (32.0-36.0); MEAN CORPUSCULAR VOLUME 83.7 fL (79-99); MONOCYTES % (AUTO) 8.5 % (3.0-13.0); NEUTROPHILS % (AUTO) 54.1 % (40.0-77.0); PLATELET COUNT (AUTO) 314 K/uL (130-400); RED BLOOD CELL COUNT(AUTO) 4.17 MIL/uL (4.00-5.50); RED CELL DISTRIBUTION WIDTH 15.3 % (11.0-15.5)
[2022-04-03 06:14] LABS: CREATININE 0.8 mg/dL (0.5-1.5); MAGNESIUM 1.8 mg/dL (1.80-2.40); PHOSPHORUS 3.3 mg/dL (2.5-4.9)
[2022-04-03 08:00] VITALS: BP 134/67
[2022-04-03 11:40] VITALS: BP 144/70
== END 2022-04-03 17:00 | disposition home or self-care (01) ==
LOC: EDH 21:13 → EDHIP 04-02 02:59 → 3AH 04-02 05:25
PROVIDERS: ADMIT Internal Medicine Critical Care Medicine; ATTEND Internal Medicine Critical Care Medicine
DX: K57.90 Diverticulosis of intestine, part unspecified, without perforation or abscess without bleeding (principal); K59.00 Constipation, unspecified; I10 Essential (primary) hypertension; E03.9 Hypothyroidism, unspecified; Z88.0 Allergy status to penicillin; Z79.899 Other long term (current) drug therapy
CPT/HCPCS: 99284; 82150; 84484; 80053; 83690; 85025 ×3; 81001; 36415 ×3; 74176; 96374; 96361; 80048 ×2; 83605; 94664; 84145; 83735; 84100; G0378 ×38; J7120 ×2; J2405

== ENCOUNTER 2024-08-23 16:25 | Emergency (ER) | payer MEDICARE ==
[~2024-08-23] VITALS: Ht 152.4 cm; Wt 51.3 kg
[~2024-08-23 16:25] MED LIST changes: -LEVO25CA4 PO; +LEVO25CA5 PO; -METO5 PO; -PANT40TA PO; +ZOLP5TAB8 PO
--- NOTE | 2024-08-23 18:48 | NUR ---
DERMABOND SET UP AT [facility]
--- NOTE | 2024-08-23 18:50 | NUR ---
WOUND CARE TO HEAD LACERATION,FOREHEAD,WITH NORMAL SALINE AND SHUR CLEANSE. TOLERALED WELL.
[2024-08-23] MEDS: OCTYL 2-CYANOACRYLATE 1 EACH TP ONE ×3 (19:14→19:15)
--- NOTE | 2024-08-23 19:14 | HMCIMG ---
EXAM: Non-contrast CT examination of the Brain CLINICAL HISTORY: Fall. Head laceration. TECHNIQUE: Thin collimated axial CT images of the brain were obtained with sagittal and coronal reformatted images also submitted. CT scan done according to ALARA (As Low as Reasonably Achievable). CONTRAST USED: None. COMPARISON: CT dated 04/06/2019. FINDINGS: No acute intracranial abnormality is present. Confluent hypodensities noted in the white matter of bilateral cerebral hemispheres, likely chronic small vessel ischemic changes. No acute cortical infarction, hemorrhage, mass or mass effect. No hydrocephalus or abnormal extra-axial fluid collections. The posterior fossa is unremarkable. The skull base and calvarium are intact. Moderate degenerative changes noted in the left temporomandibular joint. The included portions of the paranasal sinuses and mastoid air cells are clear. IMPRESSION: No acute intracranial abnormality is present. Moderate chronic small vessel ischemic changes. /[place]
--- NOTE | 2024-08-23 20:20 | HMCIMG ---
EXAMINATION: CT Cervical Spine Without IV contrast. CLINICAL HISTORY: Patient presents after fall with head laceration. TECHNIQUE: Axial computed tomography images of the cervical spine without intravenous contrast. Sagittal and coronal reformatted images were generated (incomplete reconstructions). COMPARISON: None provided. FINDINGS: ALIGNMENT: Evaluation is severely limited due to incomplete axial, sagittal, and coronal reconstructions. DEGENERATIVE CHANGES: Multilevel spondylotic changes with marginal osteophytes, facetal arthropathy, and ligamentum flavum hypertrophy. SOFT TISSUES: The prevertebral soft tissues are within normal limits. BONES: No acute fracture or aggressive appearing osseous lesion. LUNG APICES: Bilateral apical fibrotic pleural thickening. IMPRESSION: Limited evaluation of the cervical spine due to incomplete images. Recommend repeat evaluation with complete reconstructions. Multilevel cervical spondylosis with marginal osteophytes, facet arthropathy, and ligamentum flavum hypertrophy. Bilateral apical fibrotic pleural thickening. /[place]
--- NOTE | 2024-08-23 20:27 | ERN ---
ED Note History of Present Illness Stated Complaint: ANTERIOR HEAD LACERATION Chief Complaint: Mechanical Fall Time Seen by MD: 16:29 Time Seen by Midlevel: 17:00 Dictation: 83-year-old female with a history of anxiety coming in for a slip and fall she was coming out of her truck. Patient has a laceration to her right forehead. Denies any LOC, denies any blood thinners. Denies any other complaints at this time. Allergies: Coded Allergies: Penicillins (Verified Allergy, Unknown, 01/21/18) ceftriaxone (Verified Allergy, Unknown, 01/21/18) ciprofloxacin (Unverified Allergy, Unknown, 04/08/19) ketamine (Unverified Allergy, Unknown, 07/14/21) soy (Verified Allergy, Unknown, 01/21/18) Home Meds Reported Medications Zolpidem Tartrate (Zolpidem Tartrate) 5 Mg Tablet, 10 MG PO DAILY, TAB 04/02/22 Buprenorphine HCl/Naloxone HCl (Suboxone 4 mg-1 mg Sl Film) 1 Each Film, 1 EACH SL DAILY, FILM 08/13/21 Levothyroxine Sodium (Levothyroxine) 25 Mcg Capsule, 25 MCG PO DAILY, CAP 08/13/21 Lisinopril (Lisinopril) 20 Mg Tablet, 20 MG PO DAILY, TAB 08/13/21 Lorazepam (Ativan) 1 Mg Tablet, 0.5 MG PO QID, TAB 08/13/21 Past Medical History Past Medical History: Diverticulitis, Hypertension, Hypothyroid Additional Past Medical Hx: HIATAL HERNIA Surgical History: None Surgical History Other: MALA KNEES Family History: Negative Social History: Negative, Lives with family, Other History: Not Applicable Review of System Dictation Constitutional: Negative for fever,chills, and weight loss Eyes: Negative for injury, pain,redness, and discharge ENT: Negative for injury,pain or swelling Cardiovascular: Negative for chest pain, palpitations, and edema Respiratory: Negative for shortness of breath, cough, and wheezing, Abdomen/GI: Negative for abdominal pain, nausea, vomiting, diarrhea, and constipation Back: Negative for injury and pain : Negative for injury, bleeding and discharge MS/Extremity: Negative for injury and deformity Skin: Negative for rash, and discoloration, laceration to the right forehead Neuro: Negative for headache, weakness, numbness, tingling, and seizure Psych: Negative for suicide ideation, homicidal ideation, and hallucinations Review of Systems: was completed Initial Vital Sign VS Vital Signs Date Time Temp Pulse Resp B/P (MAP) Pulse Ox O2 Delivery O2 Flow Rate FiO2 08/23/24 16:25 98.2 101 20 168/114 96 Room Air 0 08/23/24 16:34 21 Physical Exam Dictation General: awake, alert, NAD Head/Face: Normocephalic, atraumatic Eyes: PERRL, EOMI, vision at baseline ENT: oral cavity clear, TMs clear, no signs of infection Neck: Trachea midline, supple, no nuchal rigidity Cardiovascular: RRR, normal S1/S2, No MRGs, no JVD Respiratory: CTAB, no respiratory distress, No rales or wheezes Abdomen: Soft, non-tender, non-distended, normal bowel sounds, no guarding or rebound. Skin: Warm, dry, normal turgor, no rash, laceration to the right forehead MS/Extremity: Pulses equal, no cyanosis, neurovascular intact, FROM Neuro: COAx4, GCS 15, strength 5/5, CN 2-12 intact, normal cerebellar exam, normal gait, Psych: Normal behavior, mood, and affect normal Results (Laboratory/Radiology) Labs Reviewed?: Yes CT Scan Comment: [address] [address] IMAGING REPORT Signed PATIENT: IMELDA MARTINEZ MR#: [id number] : 1940 SEX: F AGE: 83 LOCATION: [facility] ORDER 163 STATUS: REG ER REPORT#: [id number] SERVICE 163 REASON: FALL. HEAD LACERATION. ORDERING PHYSICIAN: BLESSING GOLD MD PROCEDURE: HEAD WO - CT HEAD/BRAIN W/O CONTRAST EXAM: Non-contrast CT examination of the Brain CLINICAL HISTORY: Fall. Head laceration. TECHNIQUE: Thin collimated axial CT images of the brain were obtained with sagittal and coronal reformatted images also submitted. CT scan done according to ALARA (As Low as Reasonably Achievable). CONTRAST USED: None. COMPARISON: CT dated 04/06/2019. FINDINGS: No acute intracranial abnormality is present. Confluent hypodensities noted in the white matter of bilateral cerebral hemispheres, likely chronic small vessel ischemic changes. No acute cortical infarction, hemorrhage, mass or mass effect. No hydrocephalus or abnormal extra-axial fluid collections. The posterior fossa is unremarkable. The skull base and calvarium are intact. Moderate degenerative changes noted in the left temporomandibular joint. The included portions of the paranasal sinuses and mastoid air cells are clear. IMPRESSION: No acute intracranial abnormality is present. Moderate chronic small vessel ischemic changes. /[place] DICTATED BY: NALLELY PARK Jr., MD DATE: 08/23/242012 ELECTRONICALLY SIGNED BY: NALLELY PARK Jr., MD DATE: 08/23/242012 [address] [address] IMAGING REPORT Signed PATIENT: IMELDA MARTINEZ MR#: [id number] : 1940 SEX: F AGE: 83 LOCATION: [facility] ORDER 163 STATUS: [facility] REPORT#: [id number] SERVICE 163 REASON: FALL. HEAD LACERATION. ORDERING PHYSICIAN: BLESSING GOLD MD PROCEDURE: C SPIN WO - CT CERVICAL SPINE W/O CONTRAST EXAMINATION: CT Cervical Spine Without IV contrast. CLINICAL HISTORY: Patient presents after fall with head laceration. TECHNIQUE: Axial computed tomography images of the cervical spine without intravenous contrast. Sagittal and coronal reformatted images were generated (incomplete reconstructions). COMPARISON: None provided. FINDINGS: ALIGNMENT: Evaluation is severely limited due to incomplete axial, sagittal, and coronal reconstructions. DEGENERATIVE CHANGES: Multilevel spondylotic changes with marginal osteophytes, facetal arthropathy, and ligamentum flavum hypertrophy. SOFT TISSUES: The prevertebral soft tissues are within normal limits. BONES: No acute fracture or aggressive appearing osseous lesion. LUNG APICES: Bilateral apical fibrotic pleural thickening. IMPRESSION: Limited evaluation of the cervical spine due to incomplete images. Recommend repeat evaluation with complete reconstructions. Multilevel cervical spondylosis with marginal osteophytes, facet arthropathy, and ligamentum flavum hypertrophy. Bilateral apical fibrotic pleural thickening. /[place] DICTATED BY: NALLELY PARK Jr., MD DATE: 08/23/242118 ELECTRONICALLY SIGNED BY: NALLELY PARK Jr., MD DATE: 08/23/242118 [place] [address] [address] IMAGING REPORT Addendum PATIENT: IMELDA MARTINEZ MR#: [id number] : 1940 SEX: F AGE: 83 LOCATION: [facility] ORDER 32 [facility]US: [facility] REPORT#: [id number] SERVICE 31 REASON: FALL. HEAD LACERATION. ORDERING PHYSICIAN: BLESSING GOLD MD PROCEDURE: C SPIN WO - CT CERVICAL SPINE W/O CONTRAST ADDENDUM REPORT ADDENDUM: Examination: Noncontrast CT examination of the cervical spine Clinical history: Fall Comparison: None Findings: Thin collimated axial CT images of the cervical spine were obtained with sagittal and coronal reformatted images also submitted. The total DLP has been recorded in the electronic medical record. There is a gentle dextrocurvature of the cervical spine, and straightening of the cervical spine that may reflect paraspinal muscle spasm. There is cervical spondylosis evident by anterior osteophytes, uncovertebral joint hypertrophy, and multilevel facet joint osteoarthritis. There is multilevel degenerative disc disease, moderate to severe at C3-C7. There is mild grade 1 posterior retrolisthesis of C4 with respect to C5. Bones are osteopenic, which limits evaluation for nondisplaced fractures. There is no displaced fracture appreciated. Paraspinal musculature and soft tissues are within normal limits. Mild focal groundglass opacities on limited views of the right lung apex may reflect an infectious and/or inflammatory process. IMPRESSION: 1. No acute cervical spine injury. 2. Right apical mild groundglass opacities, may represent infection/inflammation. /[place] EXAMINATION: CT Cervical Spine Without IV contrast. CLINICAL HISTORY: Patient presents after fall with head laceration. TECHNIQUE: Axial computed tomography images of the cervical spine without intravenous contrast. Sagittal and coronal reformatted images were generated (incomplete reconstructions). COMPARISON: None provided. FINDINGS: ALIGNMENT: Evaluation is severely limited due to incomplete axial, sagittal, and coronal reconstructions. DEGENERATIVE CHANGES: Multilevel spondylotic changes with marginal osteophytes, facetal arthropathy, and ligamentum flavum hypertrophy. SOFT TISSUES: The prevertebral soft tissues are within normal limits. BONES: No acute fracture or aggressive appearing osseous lesion. LUNG APICES: Bilateral apical fibrotic pleural thickening. IMPRESSION: Limited evaluation of the cervical spine due to incomplete images. Recommend repeat evaluation with complete reconstructions. Multilevel cervical spondylosis with marginal osteophytes, facet arthropathy, and ligamentum flavum hypertrophy. Bilateral apical fibrotic pleural thickening. /[place] DICTATED BY: NALLELY PARK Jr., MD DATE: 08/23/242254 ELECTRONICALLY SIGNED BY: DATE: EXAMINATION: CT Cervical Spine Without IV contrast. CLINICAL HISTORY: Patient presents after fall with head laceration. TECHNIQUE: Axial computed tomography images of the cervical spine without intravenous contrast. Sagittal and coronal reformatted images were generated (incomplete reconstructions). COMPARISON: None provided. FINDINGS: ALIGNMENT: Evaluation is severely limited due to incomplete axial, sagittal, and coronal reconstructions. DEGENERATIVE CHANGES: Multilevel spondylotic changes with marginal osteophytes, facetal arthropathy, and ligamentum flavum hypertrophy. SOFT TISSUES: The prevertebral soft tissues are within normal limits. BONES: No acute fracture or aggressive appearing osseous lesion. LUNG APICES: Bilateral apical fibrotic pleural thickening. IMPRESSION: Limited evaluation of the cervical spine due to incomplete images. Recommend repeat evaluation with complete reconstructions. Multilevel cervical spondylosis with marginal osteophytes, facet arthropathy, and ligamentum flavum hypertrophy. Bilateral apical fibrotic pleural thickening. /[place] DICTATED BY: NALLELY PARK Jr., MD DATE: 08/23/242118 ELECTRONICALLY SIGNED BY: NALLELY PARK Jr., MD DATE: 08/23/242118 ED Course ED Course Orders Procedure Category Date Status Time Ct Head/Brain W/O CT 08/23/24 Resulted Contrast 16:32 Ct Cervical Spine W/O CT 08/23/24 Resulted Contrast 16:32 Morphine 2mg Syg PHA 08/23/24 Complete (Morphine 2mg Syg) 17:00 Ondansetron 4mg Inj PHA 08/23/24 Complete (Zofran 4mg Inj) 17:00 Dermabond Set Up CPOE 08/23/24 Transmitted Bedside (Er) 18:43 Wound Care (Er) CPOE 08/23/24 Transmitted 18:43 Dermabond (Dermabond) PHA 08/23/24 Complete 19:30 Dermabond (Dermabond) PHA 08/23/24 Complete 19:10 Dermabond (Dermabond) PHA 08/23/24 Complete 19:11 Lorazepam 1 Mg PHA 08/23/24 Complete (Ativan) 19:42 Ct Cervical Spine W/O CT 08/23/24 Logged Contrast 21:54 Current Medications Medications (Trade) Dose Ordered Sig/Fifi Route PRN Reason Start Time Stop Time Status Last Admin Dose Admin Lorazepam (AtiVAN) 1 mg ONCE STAT PO 08/23/24 19:42 08/23/24 19:45 DC 08/23/24 19:54 Morphine Sulfate (morPHINE 2MG SYG) 2 mg ONCE ONCE IVP 08/23/24 17:00 08/23/24 17:01 DC 08/23/24 17:02 Octyl Cyanoacrylate (Dermabond) 1 each ONCE ONCE TP 08/23/24 19:30 08/23/24 19:31 DC 08/23/24 19:15 Octyl Cyanoacrylate (Dermabond) 1 each STK-MED ONCE TP 08/23/24 19:10 08/23/24 19:10 DC Octyl Cyanoacrylate (Dermabond) 1 each STK-MED ONCE TP 08/23/24 19:11 08/23/24 19:12 DC Ondansetron HCl (zoFRAN 4MG INJ) 4 mg ONCE ONCE IVP 08/23/24 17:00 08/23/24 17:01 DC 08/23/24 16:55 Vital Signs Date Time Temp Pulse Resp B/P (MAP) Pulse Ox O2 Delivery O2 Flow Rate FiO2 08/23/24 22:08 98.2 75 18 138/81 98 Room Air* 0 21 08/23/24 21:03 98.2 78 18 138/81 98 Room Air* 0 21 08/23/24 19:55 98.2 78 18 155/84 98 Room Air* 0 21 08/23/24 16:34 97 18 97 Room Air* 0 21 08/23/24 16:25 98.2 101 20 168/114 96 Room Air 0 Medical Decision Making MDM MDM: 83-year-old female with a history of anxiety coming in for a slip and fall she was coming out of her truck. Patient has a laceration to her right forehead. Denies any LOC, denies any blood thinners. Denies any other complaints at this time. CT scan of the head shows no acute finding. CT of the C-spine is showing incomplete images and limited evaluation but no acute findings. CT scan of the C-spine shows degenerative findings, no acute findings. Patient has been ambulatory moving all extremities with no complaints of numbness, tingling, unilateral weakness, incontinence. Discussed findings with spouse. Educated the patient develops any symptoms to return to the ER. Both verbalized understanding, answered all questions. Differential diagnosis: SDH, ICH, laceration Rationale: Tests considered and ordered secondary to shared decision making include: Previous outside records reviewed: Old ER visits. Risk of complication and/or morbidity or mortality of patient management: None Medications-Per medication reconciliation Need for hospitalization: Patient does not meet criteria for hospitalization. Need for emergency major/minor surgery: No There are no social concerns with this patient. Prescription drug management Prescriptions will include symptomatic care Patient's prior external medical records from other ER visits were reviewed by me as indicated. Prior testing and results from previous visits were reviewed. Prior tests were taken into account with medical decision making and resource utilization, independent historian/historians were used to obtain complete medical history. I independently interpreted the test that were performed, results were reviewed by me and considered findings on radiology if ordered. Medical management and examination interpretation discussions were had by me with other qualified healthcare professionals as indicated for the patient's care. Procedure Wound Location: head Wound Length (cm): 3 Wound's Depth, Shape: superficial Wound Explored: clean Wound Debrided: minimal Wound Repaired With: Dermabond DX & DISP Disposition: Discharge Departure Impression: Primary Impression: Anxiety Additional Impressions: Fall, Laceration Condition: Stable Additional Instructions: Your CT scan of your C-spine shows no acute cervical spine injury however does show multilevel degenerative disc disease, you need to follow up with the PCP or with a specialist if you develop any symptoms. Tylenol or Motrin for pain control. The Dermabond will fall off by itself in 7-10 days. Referrals: PEEWEE QUINTERO MD (PCP) Time of Disposition: 22:18 I have reviewed the case, and I agree with, Diagnosis and Plan GRETCHEN MORENO NP Aug 23, 2024 20:27
--- NOTE | 2024-08-23 20:34 | NUR ---
CALLED KATJA IN CT FOR IMAGING ERROR ON CT. KATJA WILL FOLLOW UP WITH UPDATE. Addendum: 08/23/24 at 2211 by [email or web address] PT PENDING FINALIZED CT RESULTS.
[2024-08-23 22:08] VITALS: BP 138/81; PULSE 75; RESP 18; TEMP 98.2; O2SAT 98
== END 2024-08-23 22:35 | disposition home or self-care (01) ==
LOC: EDH 16:25
DX: S01.81XA Laceration without foreign body of other part of head, initial encounter (principal); E03.9 Hypothyroidism, unspecified; F41.9 Anxiety disorder, unspecified; I10 Essential (primary) hypertension; Z79.899 Other long term (current) drug therapy; Z88.0 Allergy status to penicillin; Z88.1 Allergy status to other antibiotic agents; W01.0XXA Fall on same level from slipping, tripping and stumbling without subsequent striking against object, initial encounter; Y93.89 Activity, other specified; Y92.89 Other specified places as the place of occurrence of the external cause; Y99.8 Other external cause status
CPT/HCPCS: 99285; 70450; 96374; 96375; 12013; 72125; J2270; J2405

== ENCOUNTER 2024-10-23 21:43 | Observation (INO) | payer MEDICARE ==
[~2024-10-23] VITALS: Ht 152.4 cm; Wt 47.9 kg
[~2024-10-23 21:43] MED LIST changes: +ZOLP5TAB16 PO; -ZOLP5TAB8 PO
--- NOTE | 2024-10-23 21:57 | ERN ---
General Chief Complaint: Abdominal Pain Stated Complaint: ABD PAIN Time Seen by MD: 21:45 Source: patient History of Present Illness Initial Comments Patient is a an 83-year-old female coming in complaining of left abdominal pain. Per patient this began earlier today. She does has a history of diverticulitis and hiatal hernia. Allergies: Coded Allergies: Penicillins (Verified Allergy, Unknown, 01/21/18) ceftriaxone (Verified Allergy, Unknown, 01/21/18) ciprofloxacin (Unverified Allergy, Unknown, 04/08/19) ketamine (Unverified Allergy, Unknown, 07/14/21) soy (Verified Allergy, Unknown, 01/21/18) Home Meds Reported Medications Zolpidem Tartrate (Zolpidem Tartrate) 5 Mg Tablet, 10 MG PO DAILY, TAB 04/02/22 Buprenorphine HCl/Naloxone HCl (Suboxone 4 mg-1 mg Sl Film) 1 Each Film, 1 EACH SL DAILY, FILM 08/13/21 Levothyroxine Sodium (Levothyroxine) 25 Mcg Capsule, 25 MCG PO DAILY, CAP 08/13/21 Lisinopril (Lisinopril) 20 Mg Tablet, 20 MG PO DAILY, TAB 08/13/21 Lorazepam (Ativan) 1 Mg Tablet, 0.5 MG PO QID, TAB 08/13/21 Past Medical History Past Medical History: Diverticulitis, Hypertension, Hypothyroid Medical History Other: HIATAL HERNIA Past Surgical History: None Surgical History Other: MALA KNEES Family History Family History: Negative Social History Social History: Negative, Lives with family, Other Female( History) History: Not Applicable ROS Dictation CONSTITUTIONAL: No chills, no fever, no weakness, no diaphoresis, no malaise. HEAD/FACE: No signs of trauma. EENT: No eye pain, no blurred vision, no tearing, no double vision, no ear pain, no ear discharge, no nose pain, no nasal congestion, no throat pain, no throat swelling, no mouth pain. RESPIRATORY: No cough, no orthopnea, no SOB, no stridor, no wheezing. CARDIOVASCULAR: No chest pain, no edema, no palpitations, no syncope. GASTROINTESTINAL/ABDOMINAL: abdominal pain, no constipation, no diarrhea, no nausea, no vomiting. GENITOURINARY: No abnormal discharge, no dysuria, no frequent urination, no hematuria. No complaints of pain in the genitals. MUSCULOSKELETAL: No back pain, no gout, no joint pain, no joint swelling, no muscle pain, no muscle stiffness, no neck pain. INTEGUMENTARY: No change in color, no change in hair/nails, no dryness, no lesion, no lumps, no rash. NEUROLOGICAL/PSYCH: No anxiety, not depressed, no emotional problem, no headache, no numbness, no pre-existing deficit, no history of seizures, no tremors, no weakness. HEMATOLOGIC/LYMPHATIC: Not anemic, no history of blood clots, no apparent bleeding, no bruising, glands not swollen. All Systems Negative, Except as Noted. Physical Exam Physical Exam Dictation VITAL SIGNS: Reviewed. GENERAL APPEARANCE: Alert, oriented x3, no acute distress, obese. HEAD AND FACE: Non-traumatic. EYES: PERRL, pink conjunctivas, eyelid no trauma, anterior chamber clear. EARS: Pinnas intact and no signs of trauma or erythema. Ear canals clear and no discharge. TMs no erythema. NOSE: No discharge, no bleeding. OROPHARYNX: Mouth normal, teeth no caries, tongue pink. Pharynx clear, no erythema. Tonsils no exudates, no abscesses noted. Mucous membrane moist. NECK: Supple, non-tender, no thyromegaly, no masses, no JVD, no bruits. BREAST: Deferred. CHEST: No tenderness, no crepitus, no paradoxical movement, no retractions. LUNGS: Clear, well-ventilated, symmetric, no rales, no wheezing, no rhonchi, no stridor, good breath sounds bilaterally. HEART: Regular rate, regular rhythm, no murmur, no gallops. VASCULAR: No peripheral edema. ABDOMEN: Soft, positive bowel sounds, nondistended, no guarding, tender, no rebound, no masses no hepatomegaly, no splenomegaly, no Trujillo's sign, no hernias. RECTAL: Deferred. GENITAL: Deferred. NEUROLOGICAL: Normal speech, gross motor function intact, gross sensory function intact. MUSCULOSKELETAL: Neck nontender, full range of motion, back nontender, full range of motion. EXTREMITIES: Nontender, full range of motion. SKIN: Color pink, dry, no turgor, no rash, no lacerations, no abrasions, no contusions. LYMPHATICS: Deferred. Results Laboratory and Microbiology Lab and Micro Result Laboratory Tests Test 10/23/24 22:10 10/23/24 23:21 White Blood Count 7.8 K/uL (4.8-10.8) Red Blood Count 4.68 MIL/uL (4.00-5.50) Hemoglobin 12.8 g/dL (12.0-16.0) Hematocrit 37.9 % (36-48) Mean Corpuscular Volume 81.0 fL (79-99) Mean Corpuscular Hemoglobin 27.4 pg (27.0-33.0) Mean Corpuscular Hemoglobin Concent 33.8 g/dL (32.0-36.0) Red Cell Distribution Width 15.1 % (11.0-15.5) Platelet Count 383 K/uL (130-400) Mean Platelet Volume 9.7 fL (7.5-10.5) Immature Granulocyte % (Auto) 0.4 % (0-1) Neutrophils (%) (Auto) 51.9 % (40.0-77.0) Lymphocytes (%) (Auto) 35.4 % (21.0-51.0) Monocytes (%) (Auto) 7.9 % (3.0-13.0) Eosinophils (%) (Auto) 4.0 % (0.0-8.0) Basophils (%) (Auto) 0.4 % (0.0-5.0) Neutrophils # (Auto) 4.0 K/uL (1.8-7.7) Lymphocytes # (Auto) 2.7 K/uL (1.0-4.8) Monocytes # (Auto) 0.6 K/uL (0.1-1.0) Eosinophils # (Auto) 0.31 K/uL (0.00-0.70) Basophils # (Auto) 0.03 K/uL (0.00-0.20) Absolute Immature Granulocyte (auto 0.03 K/uL (0-1) Nucleated Red Blood Cells 0.0 % (0.0-0.19) Sodium Level 133 mmol/L (136-145) L Potassium Level 5.9 mmol/L (3.5-5.1) H Chloride Level 102 mmol/L (101-111) Carbon Dioxide Level 24 mmol/L (21-32) Blood Urea Nitrogen 15 mg/dL (7-18) Creatinine 0.7 mg/dL (0.5-1.0) Glomerular Filtration Rate Calc 87 mL/min (>90) Random Glucose 108 mg/dL (70-105) H Total Calcium 8.9 mg/dL (8.5-10.1) Troponin I High Sensitivity 41 ng/L (4-50) Lipase 27 U/L (16-77) Urine Color LIGHT-YELLOW (YELLOW) Urine Appearance CLEAR (CLEAR) Urine pH 6.0 (5.0-8.0) Urine Specific [place] 1.008 (1.001-1.031) Urine Protein NEGATIVE mg/dL (NEGATIVE) Urine Glucose (UA) NEGATIVE mg/dL (NEGATIVE) Urine Ketones NEGATIVE mg/dL (NEGATIVE) Urine Occult Blood SMALL (NEGATIVE) H Urine Nitrate NEGATIVE (NEGATIVE) Urine Bilirubin NEGATIVE mg/dL (NEGATIVE) Urine Urobilinogen 0.2 mg/dL (0.2-1.0) Urine Leukocyte Esterase 500 Uyen/uL (NEGATIVE) H Urine RBC 11-25 /HPF (0-1) H Urine WBC 11-25 /HPF (0-1) H Urine Squamous Epithelial Cells RARE /HPF (0-2) Urine Bacteria FEW /HPF (None Seen) Urine Opiates Screen NEGATIVE (NEGATIVE) Urine Barbiturates Screen NEGATIVE (NEGATIVE) Urine Phencyclidine Screen NEGATIVE (NEGATIVE) Urine Amphetamines Screen NEGATIVE (NEGATIVE) Urine Benzodiazepines Screen NEGATIVE (NEGATIVE) Urine Cocaine Screen NEGATIVE (NEGATIVE) Urine Marijuana (THC) Screen NEGATIVE (NEGATIVE) Labs Reviewed?: Yes EKG/XRAY/US/CT/MRI EKG Comment 10/23/2024 time 10:02 p.m. Ventricular rate 94 Sinus rhythm Left bundle branch block DC 183 CT Scan Comment [facility] [address] [place] [id number] IMAGING REPORT Signed PATIENT: IMELDA MARTINEZ MR#: [id number] : 1940 SEX: F AGE: 83 LOCATION: [facility] ORDER 29 STATUS: REG ER REPORT#: [id number] SERVICE 28 REASON: ABD PAIN ORDERING PHYSICIAN: DANIEL MCCAIN MD PROCEDURE: ABD PEL WO - CT ABDOMEN/PELVIS W/O CONTRAST EXAM: CT Abdomen and Pelvis without IV contrast. CLINICAL HISTORY: Pain. TECHNIQUE: Thin collimated axial CT images of the abdomen and pelvis were obtained, with sagittal and coronal reformatted images also submitted. A CT scan is done according to ALARA (As Low As Reasonably Achievable). CONTRAST: None. COMPARISON: CT scan of the abdomen and pelvis. 04/02/2022. FINDINGS: Mild subsegmental atelectasis in the left lingula and lower lobes. There is no focal abnormality appreciated within the liver, gallbladder, pancreas, spleen, adrenals, or kidneys. There is a 1.5 cm splenunculus. There is no obvious bowel wall thickening. Bowel loops are normal in caliber without evidence of obstruction or ileus. Sigmoid diverticulosis. Mild constipation. The appendix is unremarkable. There is no abnormality within the urinary bladder. Status post hysterectomy. No lymphadenopathy. No free fluid. No pneumoperitoneum. Patchy atherosclerotic calcification of the aorta and its major branches. There is no acute osseous abnormality. Osteopenia. Thoracolumbar spondylosis. Tiny, uncomplicated fat-containing umbilical hernia. IMPRESSIONS: No acute process in the abdomen or pelvis. No new acute finding. /[place] DICTATED BY: NALLELY PARK Jr., MD DATE: 10/24/24136 ELECTRONICALLY SIGNED BY: NALLELY PARK Jr., MD DATE: 10/24/24136 [facility] MDM: Differential diagnosis: UTI, abdominal pain, with a history of diverticulosis, history of hiatal hernia, Rationale: Tests considered and ordered secondary to shared decision making include: Previous outside records reviewed: Old ER visits. Risk of complication and/or morbidity or mortality of patient management: None Medications-Per medication reconciliation Need for hospitalization: Patient does not meet criteria for hospitalization. Need for emergency major/minor surgery: No There are no social concerns with this patient. Prescription drug management Prescriptions will include symptomatic care Patient's prior external medical records from other ER visits were reviewed by me as indicated. Prior testing and results from previous visits were reviewed. Prior tests were taken into account with medical decision making and resource utilization, independent historian/historians were used to obtain complete medical history. I independently interpreted the test that were performed, results were reviewed by me and considered findings on radiology if ordered. Medical management and examination interpretation discussions were had by me with other qualified healthcare professionals as indicated for the patient's care. Patient will be admitted under the care of hospitalist group. ED Course Orders Procedure Category Date Status Time Cbc With Differential LAB 10/23/24 Complete 21:46 Basic Metabolic Panel LAB 10/23/24 Complete 21:46 Lipase LAB 10/23/24 Complete 21:46 Urinalysis Profile LAB 10/23/24 Complete 21:46 Troponin I High LAB 10/23/24 Complete Sensitivity 21:46 12 Lead Ekg Tracing- EKG 10/23/24 Logged Technical 21:46 Drug Screen Urine LAB 10/23/24 Complete 21:58 Ketorolac PHA 10/23/24 Complete Tromethamine 15mg/Ml 22:30 Albuterol 0.083% PHA 10/23/24 In Process 2.5mg/3ml (Proventil 23:00 0.9%Nacl 1000ml (Ns PHA 10/23/24 Complete 1000ml) 23:00 Ondansetron 4mg Inj PHA 10/23/24 Complete (Zofran 4mg Inj) 23:00 Lidocaine Hcl 2% PHA 10/23/24 Complete Viscous (Lidocaine Hcl 23:00 Mag/Alum/Simeth 30ml PHA 10/23/24 Complete (Maalox Plus 30ml) 23:00 Pantoprazole 40mg Inj PHA 10/23/24 Complete (Protonix 40mg Inj 23:00 Iohexol (Omnipaque) PHA 10/23/24 Complete 23:25 Culture Urine JOSE 10/23/24 In Process 23:28 Ct Abdomen/Pelvis W/O CT 10/23/24 Resulted Contrast 23:29 Current Medications Medications (Trade) Dose Ordered Sig/Fifi Route PRN Reason Start Time Stop Time Status Last Admin Dose Admin Al Hydroxide/Mg Hydroxide (MAALox PLUS 30ML) 30 ml ONCE ONCE PO 10/23/24 23:00 10/23/24 23:05 DC 10/23/24 23:54 Albuterol Sulfate (Proventil 0.083% 2.5mg/3ml) 10 mg ONCE IH 10/23/24 23:00 11/22/24 22:59 Iohexol (Omnipaque) 75 ml STK-MED ONCE IV 10/23/24 23:25 10/23/24 23:25 DC Ketorolac Tromethamine (toRADol) 15 mg ONCE ONCE IV 10/23/24 22:30 10/23/24 22:31 DC 10/23/24 23:51 Lidocaine HCl (Lidocaine HCl 2% Viscous) 10 ml ONCE ONCE PO 10/23/24 23:00 10/23/24 23:05 DC 10/23/24 23:54 Ondansetron HCl (zoFRAN 4MG INJ) 4 mg ONCE ONCE IVP 10/23/24 23:00 10/23/24 23:05 DC 10/23/24 23:54 Pantoprazole Sodium (PROTonix 40MG INJ) 40 mg ONCE ONCE IVP 10/23/24 23:00 10/23/24 23:05 DC 10/23/24 23:54 Sodium Chloride 1,000 ml @ 0 mls/hr ONCE ONCE IV 10/23/24 23:00 10/23/24 23:05 DC 10/23/24 23:54 Vital Signs Date Time Temp Pulse Resp B/P (MAP) Pulse Ox O2 Delivery O2 Flow Rate FiO2 10/24/24 00:28 99.1 82 16 164/91 98 Room Air* 0 21 10/23/24 22:27 99.1 87 16 186/93 98 Room Air* 0 21 10/23/24 21:45 99.1 80 24 192/114 97 Room Air DX & DISP Disposition: Inpatient Decision to Admit Time: 01:01 Departure Impression: Primary Impression: UTI (urinary tract infection) Additional Impressions: Dehydration, Anxiety Condition: Stable Referrals: PEEWEE QUINTERO MD (PCP) DANIEL MCCAIN MD Oct 23, 2024 21:57
[2024-10-23 22:18] LABS: IMMATURE GRANULOCYTE ABSOLUTE 0.03 K/uL (0-1); NUCLEATED RED BLOOD CELLS 0.0 % (0.0-0.19); PLATELET COUNT (AUTO) 383 K/uL (130-400); RED BLOOD CELL COUNT(AUTO) 4.68 MIL/uL (4.00-5.50); RED CELL DISTRIBUTION WIDTH 15.1 % (11.0-15.5); WHITE BLOOD COUNT (AUTO) 7.8 K/uL (4.8-10.8)
[2024-10-23 22:26] LABS: CREATININE 0.7 mg/dL (0.5-1.0); GLOMERULAR FILTR. RATE CALC 87.0 mL/min (>90); GLUCOSE,RANDOM 108.0 mg/dL (70-105); SODIUM SERUM 133.0 mmol/L (136-145); UREA NITROGEN, BLOOD 15.0 mg/dL (7-18)
[2024-10-23] MEDS ORDERED: IOHEXOL-350 75 ML VIAL IV ONE (23:25)
[2024-10-23 23:28] LABS: ADD UA MICROSCOPIC YES; APPEARANCE,URINE CLEAR (CLEAR); GLUCOSE, URINE (UA) NEGATIVE (NEGATIVE); LEUKOCYTE ESTERASE ,URINE 500 Leu/uL (NEGATIVE); NITRATE,URINE NEGATIVE (NEGATIVE); OCCULT BLOOD,URINE SMALL (NEGATIVE)
[2024-10-23 23:33] LABS: SQUAMOUS EPITHELIAL CELL,UR RARE /HPF (0-2)
[2024-10-23 23:34] LABS: AMPHET/METH SCREEN,URINE NEGATIVE (NEGATIVE); BARBITURATE SCREEN, URINE NEGATIVE (NEGATIVE); CANNABINOID SCREEN,URINE NEGATIVE (NEGATIVE); COCAINE SCREEN,URINE NEGATIVE (NEGATIVE)
[2024-10-23] MEDS: LIDOCAINE HCL 2% VISCOUS 15 ML UDCUP PO ONE (23:54)
[2024-10-23] MEDS: 0.9%NACL 1000ML 1,000 ML IV ONE (23:54)
[2024-10-23] MEDS: MAG/ALUM/SIMETH 30 ML UDCUP PO ONE (23:54)
--- NOTE | 2024-10-24 00:38 | HMCIMG ---
EXAM: CT Abdomen and Pelvis without IV contrast. CLINICAL HISTORY: Pain. TECHNIQUE: Thin collimated axial CT images of the abdomen and pelvis were obtained, with sagittal and coronal reformatted images also submitted. A CT scan is done according to ALARA (As Low As Reasonably Achievable). CONTRAST: None. COMPARISON: CT scan of the abdomen and pelvis. 04/02/2022. FINDINGS: Mild subsegmental atelectasis in the left lingula and lower lobes. There is no focal abnormality appreciated within the liver, gallbladder, pancreas, spleen, adrenals, or kidneys. There is a 1.5 cm splenunculus. There is no obvious bowel wall thickening. Bowel loops are normal in caliber without evidence of obstruction or ileus. Sigmoid diverticulosis. Mild constipation. The appendix is unremarkable. There is no abnormality within the urinary bladder. Status post hysterectomy. No lymphadenopathy. No free fluid. No pneumoperitoneum. Patchy atherosclerotic calcification of the aorta and its major branches. There is no acute osseous abnormality. Osteopenia. Thoracolumbar spondylosis. Tiny, uncomplicated fat-containing umbilical hernia. IMPRESSIONS: No acute process in the abdomen or pelvis. No new acute finding. /Ricardo
--- NOTE | 2024-10-24 01:11 | HP ---
[facility] HISTORY AND PHYSICAL Date of Service: Oct 24, 2024 Time of Service: 01:11 Supervising/attending physician: Dr. Ayden Mart and Dr. Horacio Kirby HISTORY OF PRESENT ILLNESS: Ms. Gonsalez is a 83-year-old female with history of diverticulitis, hypertension, hypothyroid, and hiatal hernia who presented with [facility] for evaluation of left abdominal pain that began earlier today. The patient reported the pain is intermittent. She also reported increased anxiety. VS: HR 80 bpm, RR bpm 24, BP 192/114, 97% RA, 99.1 F. Lab: Sodium 133, Potassium 5.9, Random Glucose 108, Troponin 41, Lipase 27, WBC 7.8, RBC 4.68, Hgb 12.8, Hct 37.9, Plt Count 38.3, UA: +Leuk Est, +occult blood, Urine RBC: 11-25, WBC 11-25, Toxicology: UDS negative, Abdomen/Pelvis CT: No acute process in the abdomen or pelvis. No new acute finding. In ED the patient received Toradol 50 mg IV, albuterol for hyperkalemia protocol, GI cocktail (viscous lidocaine and Maalox), NS1 L bolus, Zofran4 mg, Protonix, and hydroxyzine 50 mg IM. ED provider requested patient to be admitted to the hospital with the diagnosis of a UTI, dehydration, and anxiety. I assessed the patient at bedside in ED 13. The patient's breathing was even, unlabored, in no distress. Patient voiced feeling anxiety despite hydroxyzine that was given the patient requested lorazepam. She reported that she was on lorazepam in the past. I informed her and of labs, diagnostics, and plan of care. She verbalized understanding and is in agreement with the plan. Plan and assessment are listed below. REVIEW OF SYSTEMS 12-point ROS reviewed with patient. All pertinent positives mentioned above. Otherwise negative, noncontributory, nonpertinent. PAST MEDICAL HISTORY: As mentioned above PAST SURGICAL HISTORY: MALA KNEES PAST SOCIAL HISTORY: Denied alcohol, tobacco, illicit drug use Lives with FAMILY HISTORY: Noncontributory Coded Allergies: Penicillins (Verified Allergy, Unknown, 01/21/18) ceftriaxone (Verified Allergy, Unknown, 01/21/18) ciprofloxacin (Unverified Allergy, Unknown, 04/08/19) ketamine (Unverified Allergy, Unknown, 07/14/21) soy (Verified Allergy, Unknown, 01/21/18) PHYSICAL EXAM GENERAL APPEARANCE: The patient is awake, alert, and oriented, in no acute cardiopulmonary distress. NEUROLOGICAL: Cranial nerves II-XII grossly intact. Motor is 5/5 in bilateral upper and lower extremities proximal to distal. No sensory deficits. HEENT: Face is symmetric. Pupils are equal and reactive. Extraocular movements are intact. NECK: Supple. No JVD. No thyromegaly. No submental, submandibular, pre- /postauricular, occipital or supraclavicular lymphadenopathy. CHEST: Normal chest expansion. No Telemetry. LUNGS: Absence of any rales, rhonchi or any wheezing. CARDIOVASCULAR: Regular. S1 and S2 normal. No appreciable rubs, murmurs or gallops. ABDOMEN: Soft, nontender, and nondistended. There is no rebound, voluntary guarding, or rigidity. : Deferred. No [place]. EXTREMITIES: Non-edematous and not cyanotic. No clubbing. Good capillary refill. PSYCH: Anxious, distracted. SKIN: No skin breakdown. Vital Sign (Last 24 Hours) 10/24/24 00:28 Temp 99.1 Pulse 82 Resp 16 B/P (MAP) 164/91 Pulse Ox 98 O2 Delivery Room Air* O2 Flow Rate 0 FiO2 21 LABS: Laboratory: Test 10/23/24 23:21 10/23/24 22:10 Range/Units Urine Color LIGHT-YELLOW YELLOW Urine Appearance CLEAR CLEAR Urine pH 6.0 5.0-8.0 Urine Specific [place] 1.008 1.001-1.031 Urine Protein NEGATIVE NEGATIVE mg/dL Urine Glucose (UA) NEGATIVE NEGATIVE mg/dL Urine Ketones NEGATIVE NEGATIVE mg/dL Urine Occult Blood SMALL H NEGATIVE Urine Nitrate NEGATIVE NEGATIVE Urine Bilirubin NEGATIVE NEGATIVE mg/dL Urine Urobilinogen 0.2 0.2-1.0 mg/dL Urine Leukocyte Esterase 500 H NEGATIVE Uyen/uL Urine RBC 11-25 H 0-1 /HPF Urine WBC 11-25 H 0-1 /HPF Urine Squamous Epithelial Cells RARE 0-2 /HPF Urine Bacteria FEW None Seen /HPF Urine Opiates Screen NEGATIVE NEGATIVE Urine Barbiturates Screen NEGATIVE NEGATIVE Urine Phencyclidine Screen NEGATIVE NEGATIVE Urine Amphetamines Screen NEGATIVE NEGATIVE Urine Benzodiazepines Screen NEGATIVE NEGATIVE Urine Cocaine Screen NEGATIVE NEGATIVE Urine Marijuana (THC) Screen NEGATIVE NEGATIVE White Blood Count 7.8 4.8-10.8 K/uL Red Blood Count 4.68 4.00-5.50 MIL/uL Hemoglobin 12.8 12.0-16.0 g/dL Hematocrit 37.9 36-48 % Mean Corpuscular Volume 81.0 79-99 fL Mean Corpuscular Hemoglobin 27.4 27.0-33.0 pg Mean Corpuscular Hemoglobin Concent 33.8 32.0-36.0 g/dL Red Cell Distribution Width 15.1 11.0-15.5 % Platelet Count 383 130-400 K/uL Mean Platelet Volume 9.7 7.5-10.5 fL Immature Granulocyte % (Auto) 0.4 0-1 % Neutrophils (%) (Auto) 51.9 40.0-77.0 % Lymphocytes (%) (Auto) 35.4 21.0-51.0 % Monocytes (%) (Auto) 7.9 3.0-13.0 % Eosinophils (%) (Auto) 4.0 0.0-8.0 % Basophils (%) (Auto) 0.4 0.0-5.0 % Neutrophils # (Auto) 4.0 1.8-7.7 K/uL Lymphocytes # (Auto) 2.7 1.0-4.8 K/uL Monocytes # (Auto) 0.6 0.1-1.0 K/uL Eosinophils # (Auto) 0.31 0.00-0.70 K/uL Basophils # (Auto) 0.03 0.00-0.20 K/uL Absolute Immature Granulocyte (auto 0.03 0-1 K/uL Nucleated Red Blood Cells 0.0 0.0-0.19 % Sodium Level 133 L 136-145 mmol/L Potassium Level 5.9 H 3.5-5.1 mmol/L Chloride Level 102 101-111 mmol/L Carbon Dioxide Level 24 21-32 mmol/L Blood Urea Nitrogen 15 7-18 mg/dL Creatinine 0.7 0.5-1.0 mg/dL Glomerular Filtration Rate Calc 87 >90 mL/min Random Glucose 108 H 70-105 mg/dL Total Calcium 8.9 8.5-10.1 mg/dL Troponin I High Sensitivity 41 4-50 ng/L Lipase 27 16-77 U/L Current Medications Medications (Trade) Dose Ordered Sig/Fifi Route PRN Reason Start Time Stop Time Status Last Admin Dose Admin Albuterol Sulfate (Proventil 0.083% 2.5mg/3ml) 10 mg ONCE IH 10/23/24 23:00 11/22/24 22:59 DIAGNOSTICS / RADIOLOGY: [ ] ASSESSMENT: Acute complicated cystitis with hematuria, POA Acute dehydration, POA Acute on chronic anxiety reaction, POA Electrolyte derangement (hyponatremia, hyperkalemia) Acute on chronic kidney disease, GFR 87 Hyperglycemia Chronic problem list: diverticulitis, hypertension, hypothyroid, and hiatal hernia PLAN: Admit to medical floor with continuous telemetry monitoring. Start Levaquin 750 mg IV Q 24 hours. (ED administered 1 L NS) Follow urine culture. NS at 75 mL an hour. Reconciled home medications: Glucometer checks a.c. and HS with insulin regular sliding scale. P.r.n. medications for: Nausea, vomiting, pain management, fever, constipation, hypertension, shortness of breath. Blood pressure checks every4 hours and as needed. Monitor renal and liver function. Monitor electrolytes and treat accordingly. A.m. labs. GI and DVT prophylaxis. Further plan/orders per hospitalization course. ADVANCED CARE PLANNING 1. Which of the following were discussed? Comfort measures only/Hospice Care - no Therapeutic options - Yes Advance Directives - Yes Other discussions - 2. Discussed with who? The patient 3. Voluntary nature of this service was explained to the patient? Yes 4. Amount of time spent - __ Over 35 minutes 5. Reviewed by Physician? (if this service was performed by CHRISTOPHER) Yes ATTESTATION BY PHYSICIAN I have evaluated the patient chart, medical records, and spoke with appropriate staff. I reviewed the documentation, medical decision making, and treatment plan as noted by the CHRISTOPHER above. I agree with the findings and plan of care. PILAR MARROQUINP Oct 24, 2024 01:11
[2024-10-24] MEDS ORDERED: LACTULOSE 20 GM/30 ML UDCUP PO PRN (01:30)
[2024-10-24] MEDS: 0.9%NACL 1000ML 1,000 ML IV SCH (01:42)
[2024-10-24 01:44] VITALS: PULSE 107; RESP 28
[2024-10-24] MEDS: ALBUTEROL 0.083% 2.5 MG/3 ML INH IH SCH (01:44)
[2024-10-24] MEDS ORDERED: 0.9%NACL 1000ML 1,000 ML IV SCH (07:00)
[2024-10-24 07:59] LABS: NUCLEATED RED BLOOD CELLS 0.0 % (0.0-0.19); PLATELET COUNT (AUTO) 289.0 K/uL (130-400); RED BLOOD CELL COUNT(AUTO) 4.53 MIL/uL (4.00-5.50); RED CELL DISTRIBUTION WIDTH 15.0 % (11.0-15.5); WHITE BLOOD COUNT (AUTO) 7.7 K/uL (4.8-10.8)
[2024-10-24 08:16] LABS: CREATININE 0.8 mg/dL (0.5-1.0); GLOMERULAR FILTR. RATE CALC 74.0 mL/min (>90); GLUCOSE,RANDOM 102.0 mg/dL (70-105); SODIUM SERUM 141.0 mmol/L (136-145); UREA NITROGEN, BLOOD 14.0 mg/dL (7-18)
[2024-10-24 08:29] LABS: ASPARTATE AMINOTRANSFERASE 19.0 U/L (10-37); PHOSPHORUS 4.5 mg/dL (2.5-4.9); TOTAL PROTEIN, SERUM 7.2 g/dL (6.0-8.3)
[2024-10-24] MEDS: FAMOTIDINE 20MG TAB PO SCH (09:42)
[2024-10-24 09:43] VITALS: O2SAT 95
--- NOTE | 2024-10-24 10:42 | EKG ---
[facility] Test Date: 2024-10-23 Test Time: 22:02:01 Pat Name: IMELDA MARTINEZ Department: [facility] Room: ED 13 Gender: F Info Specialist: [id number] : 1940 Requested By: DANIEL MCCAIN Order Number: [id number] Reading MD: Jessi Sheriff Measurements Intervals [place] Rate: 94 P: 79 CA: 183 QRS: -52 QRSD: 136 T: 118 QT: 393 QTc: 493 Interpretive Statements Sinus rhythm Left bundle branch block ST elevation secondary to IVCD Compared to ECG 08/22/2021 23:51:13 Intraventricular conduction delay now present ST (T wave) deviation now present Left-axis deviation no longer present Electronically Signed On 10-24-2024 15:07:37 CDT by Jessi Sheriff Please click the below link to view image of tracing.
[2024-10-24 12:06] VITALS: BP 130/57; PULSE 74; RESP 19; TEMP 97.6
[2024-10-24] MEDS ORDERED: MIRT-73 PO (13:34)
[2024-10-24] MEDS ORDERED: ZOLP-685 PO (13:34)
[2024-10-24] MEDS ORDERED: LEVO50 PO (13:34)
--- NOTE | 2024-10-24 14:39 | NUR ---
Report given to KARISHMA Acosta. All questions answered. Pt. transferred to Room 313 via stretcher, no acute distress noted.
--- NOTE | 2024-10-24 14:50 | NUR ---
PATIENT ARRIVED TO UNIT, ALERT AND ORIENTED X 4
[2024-10-24 15:00] VITALS: BP 144/68; PULSE 75; RESP 19; TEMP 97.5
--- NOTE | 2024-10-24 17:06 | NUR ---
MET Sweeney PATIENT AT BEDSIDE FOR DC PLANNING PATIENT LIVES WITH SPOUSE, USES NO DME OR SERVICES, DOES NOT DRIVE, AND REQUIRES SOME ASSISTANCE FROM HER SPOUSE AT TIMES TO COMPLETE ADLS. HOME SAFE AND ACCESSIBLE, DENIES FINANCIAL STRAIN- DCP HOME, SPOUSE TO PROVIDE TRANSPORT, OBSERVATION PATIENTEXPECTING SHORT STAY Addendum: 10/24/24 at 1722 by CARLOS TEJADA RN CM Amended: Links added.
--- NOTE | 2024-10-24 19:56 | NUR ---
AC/HS Patient refused blood sugar check by PRINTER FLOOR COVERING ASSISTANT Laith at this time. Patient educated on the importance of having blood sugar checks, stated "she has never had issues with her sugar so why do we have to check?"
[2024-10-24 20:00] VITALS: BP 152/77; PULSE 81; RESP 20; TEMP 97.8; O2SAT 96
[2024-10-24 23:44] VITALS: BP 123/68; PULSE 84; RESP 16; TEMP 98.3
[2024-10-25] VITALS (7 sets, daily range): BP systolic 108–152; BP diastolic 65–82; PULSE 65–88; RESP 15–18; TEMP 97.4–97.9; O2SAT 94–97
--- NOTE | 2024-10-25 05:22 | NUR ---
MORNING LABWORK Patient refused morning labs at this time. Patient states she "does not need to have lab work done." shop service technician to return later to attempt to draw labs.
[2024-10-25 07:33] LABS: NUCLEATED RED BLOOD CELLS 0.0 % (0.0-0.19); PLATELET COUNT (AUTO) 298.0 K/uL (130-400); RED BLOOD CELL COUNT(AUTO) 4.07 MIL/uL (4.00-5.50); RED CELL DISTRIBUTION WIDTH 15.2 % (11.0-15.5); WHITE BLOOD COUNT (AUTO) 6.3 K/uL (4.8-10.8)
[2024-10-25 07:37] LABS: CREATININE 1.0 mg/dL (0.5-1.0); GLOMERULAR FILTR. RATE CALC 57.0 mL/min (>90); GLUCOSE,RANDOM 87.0 mg/dL (70-105); PHOSPHORUS 3.7 mg/dL (2.5-4.9); SODIUM SERUM 142.0 mmol/L (136-145); UREA NITROGEN, BLOOD 16.0 mg/dL (7-18)
[2024-10-25] MEDS: LISINOPRIL 20 MG TABLET PO SCH (08:21)
--- NOTE | 2024-10-25 11:16 | PN ---
[facility] PROGRESS NOTE Date of Service: Oct 25, 2024 Time of Service: 11:15 SUBJECTIVE: 10/25 patient is seen and examined at bedside, case discussed with the RN, no acute events overnight, the time of my visit patient looks more comfortable today compared to time of admission, she remains alert oriented x3, feels less anxious, she is getting IV fluids and IV antibiotics, denied chest pain, denied shortness a breath, no nausea, no vomiting, no abdominal discomfort. Preliminary report [place] [id number] CFU, we will continue additional antibiotics for 24 hours, follow final identification of urine culture, anticipate discharge home in the next 24 hours. Discussed with the patient, in agreement. REVIEW OF SYSTEMS 12-point ROS reviewed with patient. All pertinent positives mentioned above. Otherwise negative, noncontributory, nonpertinent. PHYSICAL EXAM GENERAL APPEARANCE: The patient is awake, alert, and oriented, in no acute cardiopulmonary distress. NEUROLOGICAL: Cranial nerves II-XII grossly intact. Motor is 5/5 in bilateral upper and lower extremities proximal to distal. No sensory deficits. HEENT: Face is symmetric. Pupils are equal and reactive. Extraocular movements are intact. NECK: Supple. No JVD. No thyromegaly. No submental, submandibular, pre- /postauricular, occipital or supraclavicular lymphadenopathy. CHEST: Normal chest expansion. No Telemetry. LUNGS: Absence of any rales, rhonchi or any wheezing. CARDIOVASCULAR: Regular. S1 and S2 normal. No appreciable rubs, murmurs or gallops. ABDOMEN: Soft, nontender, and nondistended. There is no rebound, voluntary guarding, or rigidity. : Deferred. No Saucedo. EXTREMITIES: Non-edematous and not cyanotic. No clubbing. Good capillary refill. PSYCH: Anxious, distracted. SKIN: No skin breakdown. Vital Signs (last 8hr) Date Time Temp Pulse Resp B/P (MAP) Pulse Ox O2 Delivery O2 Flow Rate FiO2 10/25/24 08:00 97.9 83 18 108/65 94 Room Air 10/25/24 04:00 97.9 79 16 137/82 96 Room Air LABS: Laboratory: Test 10/25/24 07:15 10/24/24 07:56 10/23/24 23:21 10/23/24 22:10 Range/Units White Blood Count 6.3 4.8-10.8 K/uL Red Blood Count 4.07 4.00-5.50 MIL/uL Hemoglobin 11.0 L 12.0-16.0 g/dL Hematocrit 33.3 L 36-48 % Mean Corpuscular Volume 81.8 79-99 fL Mean Corpuscular Hemoglobin 27.0 27.0-33.0 pg Mean Corpuscular Hemoglobin Concent 33.0 32.0-36.0 g/dL Red Cell Distribution Width 15.2 11.0-15.5 % Platelet Count 298 130-400 K/uL Mean Platelet Volume 9.3 7.5-10.5 fL Nucleated Red Blood Cells 0.0 0.0-0.19 % Sodium Level 142 136-145 mmol/L Potassium Level 3.8 3.5-5.1 mmol/L Chloride Level 109 101-111 mmol/L Carbon Dioxide Level 25 21-32 mmol/L Blood Urea Nitrogen 16 7-18 mg/dL Creatinine 1.0 0.5-1.0 mg/dL Glomerular Filtration Rate Calc 57 >90 mL/min Random Glucose 87 70-105 mg/dL Total Calcium 8.5 8.5-10.1 mg/dL Phosphorus Level 3.7 2.5-4.9 mg/dL Magnesium Level 1.90 1.80-2.40 mg/dL Hemoglobin A1c 5.3 4.0-6.0 % Estimated Average Glucose (eAG) 105 70-126 mg/dL Total Bilirubin 0.4 0.2-1.0 mg/dL Aspartate Amino Transf (AST/SGOT) 19 10-37 U/L Alanine Aminotransferase (ALT/SGPT) 18 12-78 U/L Alkaline Phosphatase 96 50-136 U/L Total Protein 7.2 6.0-8.3 g/dL Albumin 3.3 L 3.5-5.0 g/dL Thyroid Stimulating Hormone (TSH) 2.29 # 0.36-3.74 uIU/mL Urine Color LIGHT-YELLOW YELLOW Urine Appearance CLEAR CLEAR Urine pH 6.0 5.0-8.0 Urine Specific Greig 1.008 1.001-1.031 Urine Protein NEGATIVE NEGATIVE mg/dL Urine Glucose (UA) NEGATIVE NEGATIVE mg/dL Urine Ketones NEGATIVE NEGATIVE mg/dL Urine Occult Blood SMALL H NEGATIVE Urine Nitrate NEGATIVE NEGATIVE Urine Bilirubin NEGATIVE NEGATIVE mg/dL Urine Urobilinogen 0.2 0.2-1.0 mg/dL Urine Leukocyte Esterase 500 H NEGATIVE Uyen/uL Urine RBC 11-25 H 0-1 /HPF Urine WBC 11-25 H 0-1 /HPF Urine Squamous Epithelial Cells RARE 0-2 /HPF Urine Bacteria FEW None Seen /HPF Urine Opiates Screen NEGATIVE NEGATIVE Urine Barbiturates Screen NEGATIVE NEGATIVE Urine Phencyclidine Screen NEGATIVE NEGATIVE Urine Amphetamines Screen NEGATIVE NEGATIVE Urine Benzodiazepines Screen NEGATIVE NEGATIVE Urine Cocaine Screen NEGATIVE NEGATIVE Urine Marijuana (THC) Screen NEGATIVE NEGATIVE Immature Granulocyte % (Auto) 0.4 0-1 % Neutrophils (%) (Auto) 51.9 40.0-77.0 % Lymphocytes (%) (Auto) 35.4 21.0-51.0 % Monocytes (%) (Auto) 7.9 3.0-13.0 % Eosinophils (%) (Auto) 4.0 0.0-8.0 % Basophils (%) (Auto) 0.4 0.0-5.0 % Neutrophils # (Auto) 4.0 1.8-7.7 K/uL Lymphocytes # (Auto) 2.7 1.0-4.8 K/uL Monocytes # (Auto) 0.6 0.1-1.0 K/uL Eosinophils # (Auto) 0.31 0.00-0.70 K/uL Basophils # (Auto) 0.03 0.00-0.20 K/uL Absolute Immature Granulocyte (auto 0.03 0-1 K/uL Troponin I High Sensitivity 41 4-50 ng/L Lipase 27 16-77 U/L Current Medications Medications (Trade) Dose Ordered Sig/Fifi Route PRN Reason Start Time Stop Time Status Last Admin Dose Admin Acetaminophen (TYLenol 325MG TAB) 650 mg Q6H PRN PO FEVER/MILD PAIN LEVEL 1-3 10/24/24 01:30 11/23/24 01:29 Acetaminophen (TYLenol 650MG SUPPOSITORY) 650 mg Q6H PRN RC FEVER / MILD PAIN 1-3 IF NPO 10/24/24 01:30 11/23/24 01:29 Albuterol Sulfate (Proventil 0.083% 2.5mg/3ml) 10 mg ONCE IH 10/23/24 23:00 10/24/24 06:52 DC 10/24/24 01:44 2.5 MG Docusate Sodium (COLace 100MG CAP) 100 mg BID PRN PO CONSTIPATION 10/24/24 01:30 11/23/24 01:29 Famotidine (Pepcid 20mg Tab) 20 mg DAILY PO 10/24/24 09:00 11/23/24 08:59 10/25/24 08:20 20 MG Hydralazine HCl (APRESOLine 20MG INJ) 5 mg Q6H PRN IV ADMINISTER FOR SBP > 160 10/24/24 11:30 11/23/24 11:29 Hydroxyzine HCl (ATArax 50MG INJ) 25 mg ONCE STAT IM 10/24/24 01:12 10/24/24 01:33 DC 10/24/24 01:40 25 MG Insulin Human Regular (humuLIN R 100 UNIT/ML 3ML) INSULIN SLIDING SCAL... ACHS SQ 10/24/24 07:30 11/23/24 07:29 Labetalol HCl (TRANdate 20MG SYG) 10 mg Q2H PRN IV SBP GREATER THAN 160 10/24/24 01:30 11/23/24 01:29 Lactulose (Constulose 20gm/ 30ml Udcup) 20 gm Q6H PRN PO CONSTIPATION 10/24/24 01:30 11/23/24 01:29 Levofloxacin/ Dextrose (LEvaquIN 750 MG/ D5W 150 ML) 750 mg Q48H IV 10/24/24 06:40 11/03/24 06:39 10/24/24 07:32 750 MG Levothyroxine Sodium (SYNTHroid 50MCG TAB) 50 mcg SYN PO 10/25/24 06:30 11/24/24 06:29 10/25/24 05:40 50 MCG Lisinopril (Prinivil 20mg) 20 mg DAILY PO 10/25/24 09:00 11/24/24 08:59 Lorazepam (AtiVAN) 0.5 mg Q6H PRN PO ANXIETY/AGITATION 10/24/24 14:00 11/23/24 13:59 10/25/24 03:31 0.5 MG Lorazepam (AtiVAN) 0.5 mg QID PO 10/24/24 17:00 10/24/24 14:01 DC Mirtazapine (REMeron 15 MG TAB) 30 mg HS PO 10/24/24 21:00 11/23/24 20:59 Ondansetron HCl (zoFRAN 4MG INJ) 4 mg Q6H PRN IVP NAUSEA/VOMITING 10/24/24 01:30 11/23/24 01:29 Sodium Chloride 1,000 ml @ 75 mls/hr [id number] IV 10/24/24 01:30 11/23/24 01:29 10/25/24 03:19 75 MLS/HR Sodium Chloride 1,000 ml @ 75 mls/hr [id number] IV 10/24/24 07:00 10/24/24 06:45 DC Temazepam (restORIL 15 MG CAP) 15 mg HS PRN PO INSOMNIA/SLEEP 10/24/24 01:30 11/23/24 01:29 10/24/24 22:36 15 MG Zolpidem Tartrate (AmbIEN) 10 mg DAILY PO 10/25/24 09:00 11/24/24 08:59 10/25/24 08:20 10 MG DIAGNOSTICS / RADIOLOGY: [ ] ASSESSMENT: Acute complicated cystitis with hematuria, POA Acute dehydration, POA Acute on chronic anxiety reaction, POA Electrolyte derangement (hyponatremia, hyperkalemia) Acute on chronic kidney disease, GFR 87 Hyperglycemia Chronic problem list: diverticulitis, hypertension, hypothyroid, and hiatal hernia PLAN: NEURO: Minimize central acting medications as possible. Fall Precautions. Well lighted room through the day and minimize interruptions through the night to prevent acute delirium. PULMONARY: Supplemental 02 as needed BiPAP as necessary, for respiratory distress Titrate Fio2 to keep Spo2 > or = 90% DuoNebs and CPT as needed IS hourly while awake for pulmonary hygiene prn Out of bed to chair as tolerated Maintain aspiration precautions at all times CARDIOVASCULAR: Follow hemodynamics. Vital signs per facility protocol GI & NUTRITION: Continue nutritional support Aspirations precautions Prokinetic agents and laxatives as needed KIDNEYS & ELECTROLYTES: Strict monitoring of intake and output Daily weights Avoid nephrotoxic agents Monitor electrolytes and replace as needed Goal urine output of 30mL/hr or 0.5mL/kg/hr Medications to be dosed according to renal function. Avoid contrast if possible ENDOCRINE: Maintain blood glucose between 100-180 at all times. Insulin sliding scale for blood glucose management Hypoglycemia and hyperglycemia protocol in place INFECTIOUS DISEASE: Trend temperature, WBC and procalcitonin level Follow cultures, deescalate antibiotics as soon as possible. Panculture if new onset fever HEMATOLOGY & COAGULATION: Monitor H&H. Keep Hgb > 7 Transfuse 1 unit of PRBC for Hgb < 7 Transfuse 1 pack of platelets of platelets < 20, 000 Watch for any signs and symptoms of bleeding SKIN: Pressure ulcer prevention per facility protocol Specialty mattress as needed ORTHO/REHAB Continue PT/OT PRN: MEDICATIONS Tylenol 650 mg po every 4 hrs for fever zofran 4 mg IV every 6 hrs for n/v Hydralazine 5 mg IV every 4 hrs systolic pressure > 160 bowel regiment: lactulose 20 gm PO BID PRN constipation Supportive measures: Continue GI and DVT prophylaxis Disposition: Possible discharge home in the next 24 hours All questions answered time spent: > 35 min MARIAMA JOHNSTON MD Oct 25, 2024 11:16
[2024-10-26 04:34] VITALS: BP 157/80; PULSE 77; RESP 19; TEMP 97.7
[2024-10-26 09:46] VITALS: O2SAT 97
[2024-10-26] MEDS ORDERED: LISI20TA24 PO (11:32)
[2024-10-26] MEDS ORDERED: LEVO-70 PO (11:32)
[2024-10-26] MEDS ORDERED: BACI30OI6 TP (11:32)
[2024-10-26] MEDS ORDERED: LORA0.5T83 PO (11:32)
[2024-10-26] MEDS ORDERED: ZOLP-685 PO (11:32)
[2024-10-26 12:00] VITALS: BP 129/75; PULSE 72; RESP 18; TEMP 97.4
--- NOTE | 2024-10-26 12:30 | NUR ---
D/C INSTRUCTIONS GIVEN AND ACKNOWLEDGED. IV REMOVED
--- NOTE | 2024-10-26 13:01 | DS ---
Discharge Summary Hospital Course Summary: Patient admitted to the hospital October 24, 2024 with the following history of the present illness: Ms. Gonsalez is a 83-year-old female with history of diverticulitis, hypertension, hypothyroid, and hiatal hernia who presented with [facility] for evaluation of left abdominal pain that began earlier today. The patient reported the pain is intermittent. She also reported increased anxiety. VS: HR 80 bpm, RR bpm 24, BP 192/114, 97% RA, 99.1 F. Lab: Sodium 133, Potassium 5.9, Random Glucose 108, Troponin 41, Lipase 27, WBC 7.8, RBC 4.68, Hgb 12.8, Hct 37.9, Plt Count 38.3, UA: +Leuk Est, +occult blood, Urine RBC: 11-25, WBC 11-25, Toxicology: UDS negative, Abdomen/Pelvis CT: No acute process in the abdomen or pelvis. No new acute finding. In ED the patient received Toradol 50 mg IV, albuterol for hyperkalemia protocol, GI cocktail (viscous lidocaine and Maalox), NS1 L bolus, Zofran4 mg, Protonix, and hydroxyzine 50 mg IM. ED provider requested patient to be admitted to the hospital with the diagnosis of a UTI, dehydration, and anxiety. I assessed the patient at bedside in ED 13. The patient's breathing was even, unlabored, in no distress. Patient voiced feeling anxiety despite hydroxyzine that was given the patient requested lorazepam. She reported that she was on lorazepam in the past. I informed her and of labs, diagnostics, and plan of care. She verbalized understanding and is in agreement with the plan. Plan and assessment are listed below. HOSPITAL COURSE The patient was admitted to the medical floor, empiric antibiotics supportive care with IV fluids started. Home medications reviewed and reconciled. Today the patient is alert oriented x3, hemodynamically stable, no acute events overnight, minimal swelling noted to the anterior right forearm, with minimal erythema at site of peripheral IV, likely due to mild infiltration. No pain. No tenderness to palpation. Skin is soft. Results of urine culture less than [id number] CFU. The patient to be discharged home today. Assessment/Plan: Final Diagnosis Acute complicated cystitis with hematuria, POA Acute dehydration, POA Acute on chronic anxiety reaction, POA Electrolyte derangement (hyponatremia, hyperkalemia) Acute on chronic kidney disease, GFR 87 Hyperglycemia Chronic problem list: diverticulitis, hypertension, hypothyroid, and hiatal hernia PLAN: Discharge Instructions: Patient to be discharged home today, to follow up with her PCP as an outpatient and to return to the hospital if her condition changes. Both the patient and the agreed and understood the information provided. Home Medications: Active Scripts Lorazepam (Ativan) 0.5 Mg Tablet, 1 TAB PO Q6HPRN PRN for anxiety for 3 Days, #12 TAB 0 Refills Prov:MARIAMA JOHNSTON MD 10/26/24 Levofloxacin (Levofloxacin) 500 Mg Tablet, 1 TAB PO DAILY for 7 Days, #7 TAB 0 Refills Prov:MARIAMA JOHNSTON MD 10/26/24 Bacitracin (Bacitracin) 500 Unit/Gram Oint...g., 1 APPL TP BID for 7 Days, #15 GM 1 Refill apply to affected area(s) Prov:MARIAMA JOHNSTON MD 10/26/24 Zolpidem Tartrate (Ambien) 10 Mg Tablet, 1 TAB PO HSPRN PRN for sleep for 30 Days, #30 TAB 1 Refill Prov:MARIAMA JOHNSTON MD 10/26/24 Lisinopril (Lisinopril) 20 Mg Tablet, 20 MG PO DAILY for 30 Days, #30 TAB 1 Refill Prov:MARIAMA JOHNSTON MD 10/26/24 Reported Medications Mirtazapine (Mirtazapine) 30 Mg Tab.rapdis, 1 TAB PO HS for 30 Days, #30 TAB 0 Refills 10/24/24 Levothyroxine Sodium (Levothroid/Synthroid) 50 Mcg Tab, 1 TAB PO DAILY for 30 Days, #30 TAB 0 Refills 10/24/24 Zolpidem Tartrate (Zolpidem Tartrate) 5 Mg Tablet, 10 MG PO DAILY, TAB 04/02/22 Buprenorphine HCl/Naloxone HCl (Suboxone 4 mg-1 mg Sl Film) 1 Each Film, 1 EACH SL DAILY, FILM 08/13/21 Levothyroxine Sodium (Levothyroxine) 25 Mcg Capsule, 25 MCG PO DAILY, CAP 08/13/21 Lorazepam (Ativan) 1 Mg Tablet, 0.5 MG PO QID, TAB 08/13/21 Time spent arranging discharge: 31-60 minutes MARIAMA JOHNSTON MD Oct 26, 2024 13:01
== END 2024-10-26 13:05 | disposition home or self-care (01) ==
LOC: EDH 21:43 → EDHIP 10-24 01:04 → 3CH 10-24 15:00
PROVIDERS: ADMIT Hospitalist; ATTEND Hospitalist
DX: N30.01 Acute cystitis with hematuria (principal); E86.0 Dehydration; E87.1 Hypo-osmolality and hyponatremia; E03.9 Hypothyroidism, unspecified; E87.5 Hyperkalemia; F41.1 Generalized anxiety disorder; I12.9 Hypertensive chronic kidney disease with stage 1 through stage 4 chronic kidney disease, or unspecified chronic kidney disease; N18.9 Chronic kidney disease, unspecified; K57.32 Diverticulitis of large intestine without perforation or abscess without bleeding; Z88.0 Allergy status to penicillin; Z88.8 Allergy status to other drugs, medicaments and biological substances; Z98.890 Other specified postprocedural states; Z79.899 Other long term (current) drug therapy
CPT/HCPCS: 81001; 96372; 96375; 99284; 84484; 80048 ×2; 80305; 83690; 85025; 87086; 36415 ×3; 74176; 93005; 96361 ×3; 96365; 83036; 84443; 83735 ×2; 84100 ×2; 80053; 85027 ×2; 94640; 96366; J7030; J2405; J2470; J1885; G0378 ×60; J3410; J1956 ×2; Q9967